=== PATIENT | male | born 1995 | race Caucasian/White ===

== ENCOUNTER 2018-12-25 19:16 | Emergency (ER) | payer SELFPAY ==
[~2018-12-25] VITALS: Ht 188 cm; Wt 143.5 kg
[2018-12-25] MEDS ORDERED: IV NORMAL SALINE 1,000ML 1,000 ML IV SCH ×2 (19:30→20:51)
[2018-12-25] MEDS ORDERED: FAMOTIDINE 20 MG/2 ML VIAL IVP ONE (19:30)
[2018-12-25] MEDS ORDERED: ONDANSETRON PF 4 MG/2 ML VIAL. IV ONE (19:30)
[2018-12-25 20:06] LABS: BASO # 0.2 x10^3/uL (0.0-0.2); BASO % 1 % (0-3); EOS % 0 % (0-3); HEMATOCRIT 47.7 % (39.0-53.0); HEMOGLOBIN 16.5 g/dL (13.0-17.5); LYMPH # 1.9 x10^3/uL (1.0-4.8); LYMPH % 14 % (24-48); MEAN CORPUSCULAR HEMOGLOBIN 29 pg (25-35); MEAN CORPUSCULAR HGB CONC 35 g/dL (31-37); MEAN CORPUSCULAR VOLUME 83 fL (79-100); MONO # 0.8 x10^3/uL (0.0-1.1); MONO % 6 % (0-9); NEUT # 10.7 x10^3uL (1.8-7.7); NEUT % 79 % (31-73); PLATELET COUNT 357 x10^3/uL (140-400); RED BLOOD COUNT 5.73 x10^6/uL (4.30-5.70); RED CELL DISTRIBUTION WIDTH 13.5 % (11.5-14.5); WHITE BLOOD COUNT 13.7 x10^3/uL (4.0-11.0)
[2018-12-25 20:17] LABS: ALBUMIN 4.6 g/dL (3.4-5.0); ALBUMIN/GLOBULIN RATIO 1.2 (1.0-1.7); CALCIUM 10.1 mg/dL (8.5-10.1); CREATININE 0.9 mg/dL (0.7-1.3); GFR 105.5; POTASSIUM 4.3 mmol/L (3.5-5.1); TOTAL BILIRUBIN 0.5 mg/dL (0.2-1.0); TOTAL PROTEIN 8.3 g/dL (6.4-8.2)
[2018-12-25] MEDS ORDERED: IOHEXOL 300 MG/ML 75 ML VIAL. IV ONE ×2 (21:00)
[2018-12-25] MEDS ORDERED: HALOPERIDOL LACT 5 MG/ML VIAL. IVP ONE (21:00)
[2018-12-25 21:10] LABS: BACTERIA,URINE 0 /HPF (0-FEW); BILIRUBIN,URINE NEG (NEG); CLARITY,URINE CLEAR; COLOR,URINE YELLOW; GLUCOSE,URINE NEG (NEG); NITRITE,URINE NEG (NEG); RBC,URINE OCC /HPF (0-2); SQUAMOUS EPITHELIAL CELL,UR OCC /LPF; UROBILINOGEN,URINE 0.2 mg/dL (0.2 mg/dL)
--- NOTE | 2018-12-25 21:53 | RAD ---
CT scan of the abdomen and pelvis with contrast 12/25/2018 CLINICAL HISTORY: Left lower quadrant abdominal pain. TECHNIQUE: After the intravenous administration of 100 cc of Omnipaque 350, contiguous, 5 mm axial sections were obtained through the abdomen and pelvis. One or more of the following individualized dose reduction techniques were utilized for this study: 1. Automated exposure control. 2. Adjustment of the mA and/or kV according to patient size. 3. Use of iterative reconstruction technique. FINDINGS: Images through the lung bases are within normal limits. The liver parenchyma has a decreased attenuation consistent with fatty infiltration. The spleen, pancreas, adrenal glands and kidneys are within normal limits. The abdominal aorta tapers normally. The gallbladder is well-distended. No free fluid or free air is seen within the abdomen. There is no evidence of bowel obstruction. The appendix is well-visualized and is within normal limits. Images through the pelvis demonstrate the urinary bladder distended with urine. No free fluid is seen. Minimal S-shaped curvature of the thoracolumbar spine is noted. IMPRESSION: No acute abnormality is seen. Electronically signed by: Mehrdad Prather MD (12/25/2018 9:50 PM) [facility]
--- NOTE | 2018-12-25 22:00 | PHYS DOC ---
Past History Past Medical History: Hypertension, Other Past Surgical History: Tonsillectomy Smoking: Non-smoker Alcohol Use: None Drug Use: None Adult General Chief Complaint Chief Complaint: NAUSEA/VOMITING/DIARRHEA HPI HPI Patient is a 23 year old male who presents with complaint of nausea, diarrhea, and abdominal pain. Patient states that he has been experiencing ongoing symptoms similar to today's episode over the past 3 months. Patient has been seen prior to today's visit at another emergency department approximately 2 months ago. He underwent CT imaging and blood work at that time no significant findings. States that despite his evaluation he has continued to have recurrent mid to left-sided abdominal pain. Denies any known triggers. States that he has had associated nausea and typically has frequent vomiting, especially in the morning. Notes that today he has had continued symptoms of abdominal pain and vomiting that started this morning but have not resolved. Denies any known medical problems. Does not currently follow with a primary doctor. States that the pain is cramping and dull. Review of Systems Review of Systems Constitutional: Denies fever or chills [] Eyes: Denies change in visual acuity, redness, or eye pain [] HENT: Denies nasal congestion or sore throat [] Respiratory: Denies cough or shortness of breath [] Cardiovascular: Denies chest pain or edema[] GI: Nausea, vomiting, diarrhea, abdominal pain[] : Denies dysuria or hematuria [] Musculoskeletal: Denies back pain or joint pain [] Integument: Denies rash or skin lesions [] Neurologic: Denies headache, focal weakness or sensory changes [] All other systems were reviewed and found to be within normal limits, except as documented in this note. Current Medications Current Medications Current Medications Medications (Trade) Dose Ordered Sig/Judith Start Time Stop Time Status Last Admin Dose Admin Famotidine (Pepcid Vial) 20 mg 1X ONCE 12/25/18 19:30 12/25/18 19:48 DC 12/25/18 19:59 20 MG Fentanyl Citrate (Fentanyl 2ml Vial) 50 mcg PRN Q15MIN PRN 12/25/18 21:00 12/26/18 20:59 12/25/18 21:15 50 MCG Haloperidol Lactate (Haldol) 5 mg 1X ONCE 12/25/18 21:00 12/25/18 21:01 DC 12/25/18 21:35 5 MG Iohexol (Omnipaque 300 Mg/ml) 25 ml 1X ONCE 12/25/18 21:00 12/25/18 21:10 DC 12/25/18 21:19 25 ML Ondansetron HCl (Zofran) 4 mg 1X ONCE 12/25/18 19:30 12/25/18 19:48 DC 12/25/18 19:59 4 MG Sodium Chloride 1,000 ml @ 1,000 mls/hr Q1H 12/25/18 20:51 12/25/18 21:50 DC 12/25/18 21:17 1,000 MLS/HR Allergies Allergies Allergies Coded Allergies Type Severity Reaction Last Updated Verified No Known Drug Allergies 01/16/15 No Physical Exam Physical Exam Constitutional: Alert, afebrile, appears in moderate discomfort. [] HENT: Normocephalic, atraumatic, bilateral external ears normal, oropharynx moist, no oral exudates, nose normal. [] Eyes: PERRLA, EOMI, conjunctiva normal, no discharge. [] Neck: Normal range of motion, no tenderness, supple, no stridor. [] Cardiovascular:Heart rate regular rhythm, no murmur [] Lungs & Thorax: Bilateral breath sounds clear to auscultation [] Abdomen: Bowel sounds normal, soft, periumbilical, epigastric, left upper and lower quadrant tenderness to palpation, no guarding or rebound tenderness, no masses, no pulsatile masses. [] Skin: Warm, dry, no erythema, no rash. [] Back: No tenderness, no CVA tenderness. [] Extremities: No tenderness, no cyanosis, no clubbing, ROM intact, no edema. [] Neurologic: Alert and oriented X 3, normal motor function, normal sensory function, no focal deficits noted. [] Current Patient Data Vital Signs Vital Signs Date Time Temp Pulse Resp B/P (MAP) Pulse Ox O2 Delivery O2 Flow Rate FiO2 12/25/18 19:16 97.9 60 30 145/81 (102) 100 Room Air Lab Results Laboratory Tests Test 12/25/18 19:40 12/25/18 19:46 12/25/18 20:44 White Blood Count 13.7 x10^3/uL (4.0-11.0) H Red Blood Count 5.73 x10^6/uL (4.30-5.70) H Hemoglobin 16.5 g/dL (13.0-17.5) Hematocrit 47.7 % (39.0-53.0) Mean Corpuscular Volume 83 fL (79-100) Mean Corpuscular Hemoglobin 29 pg (25-35) Mean Corpuscular Hemoglobin Concent 35 g/dL (31-37) Red Cell Distribution Width 13.5 % (11.5-14.5) Platelet Count 357 x10^3/uL (140-400) Neutrophils (%) (Auto) 79 % (31-73) H Lymphocytes (%) (Auto) 14 % (24-48) L Monocytes (%) (Auto) 6 % (0-9) Eosinophils (%) (Auto) 0 % (0-3) Basophils (%) (Auto) 1 % (0-3) Neutrophils # (Auto) 10.7 x10^3uL (1.8-7.7) H Lymphocytes # (Auto) 1.9 x10^3/uL (1.0-4.8) Monocytes # (Auto) 0.8 x10^3/uL (0.0-1.1) Eosinophils # (Auto) 0.0 x10^3/uL (0.0-0.7) Basophils # (Auto) 0.2 x10^3/uL (0.0-0.2) Sodium Level 138 mmol/L (136-145) Potassium Level 4.3 mmol/L (3.5-5.1) Chloride Level 102 mmol/L (98-107) Carbon Dioxide Level 20 mmol/L (21-32) L Anion Gap 16 (6-14) H Blood Urea Nitrogen 11 mg/dL (8-26) Creatinine 0.9 mg/dL (0.7-1.3) Estimated GFR (Cockcroft-Gault) 105.5 BUN/Creatinine Ratio 12 (6-20) Glucose Level 118 mg/dL (70-99) H Calcium Level 10.1 mg/dL (8.5-10.1) Total Bilirubin 0.5 mg/dL (0.2-1.0) Aspartate Amino Transferase (AST) 30 U/L (15-37) Alanine Aminotransferase (ALT) 51 U/L (16-63) Alkaline Phosphatase 64 U/L (46-116) Total Protein 8.3 g/dL (6.4-8.2) H Albumin 4.6 g/dL (3.4-5.0) Albumin/Globulin Ratio 1.2 (1.0-1.7) Lipase 88 U/L (73-393) Glucose (Fingerstick) 115 mg/dL (70-99) H Urine Collection Type Unknown Urine Color Yellow Urine Clarity Clear Urine pH 7.0 Urine Specific Hydro 1.020 Urine Protein 30 mg/dl (NEG-TRACE) Urine Glucose (UA) Neg mg/dL (NEG) Urine Ketones (Stick) >=160 mg/dL (NEG) Urine Blood Trace (NEG) Urine Nitrite Neg (NEG) Urine Bilirubin Neg (NEG) Urine Urobilinogen Dipstick 0.2 mg/dL (0.2 mg/dL) Urine Leukocyte Esterase Neg (NEG) Urine RBC Occ /HPF (0-2) Urine WBC 1-4 /HPF (0-4) Urine Squamous Epithelial Cells Occ /LPF Urine Bacteria 0 /HPF (0-FEW) Urine Mucus Slight /LPF EKG EKG Not performed[] Radiology/Procedures Radiology/[place] [address] IMAGING REPORT Signed PATIENT: RAY SEN ACCOUNT: [id number] : 1995 LOCATION: ER AGE: 23 SEX: M EXAM STATUS: REG ER ORD. PHYSICIAN: DESIRAE AQUINO MD REASON: llq abdominal pain PROCEDURE: CT ABD PELV W/ IV CONTRST ONLY CT scan of the abdomen and pelvis with contrast 12/25/2018 CLINICAL HISTORY: Left lower quadrant abdominal pain. TECHNIQUE: After the intravenous administration of 100 cc of Omnipaque 350, contiguous, 5 mm axial sections were obtained through the abdomen and pelvis. One or more of the following individualized dose reduction techniques were utilized for this study: 1. Automated exposure control. 2. Adjustment of the mA and/or kV according to patient size. 3. Use of iterative reconstruction technique. FINDINGS: Images through the lung bases are within normal limits. The liver parenchyma has a decreased attenuation consistent with fatty infiltration. The spleen, pancreas, adrenal glands and kidneys are within normal limits. The abdominal aorta tapers normally. The gallbladder is well-distended. No free fluid or free air is seen within the abdomen. There is no evidence of bowel obstruction. The appendix is well-visualized and is within normal limits. Images through the pelvis demonstrate the urinary bladder distended with urine. No free fluid is seen. Minimal S-shaped curvature of the thoracolumbar spine is noted. IMPRESSION: No acute abnormality is seen. Electronically signed by: Mehrdad Prather MD (12/25/2018 9:50 PM) [facility] DICTATED AND SIGNED BY: MEHRDAD PRATHER MD DATE: 12/25/182149 CC: DESIRAE AQUINO MD; PCP,ORIANA ~ [] Course & Med Decision Making Course & Med Decision Making Pertinent Labs and Imaging studies reviewed. (See chart for details) Patient was treated with IV Haldol, fentanyl, and Zofran. Symptoms currently controlled at this time and patient states that he feels better. CT imaging and blood work revealed no specific cause for patient's symptoms. I have moderate suspicion the patient's symptoms could be a potential cyclic vomiting syndrome though I did speak with the family and the patient regarding need for further testing to rule out other potential causes for symptoms. Prescribed Phenergan and Pepcid for continued outpatient treatment. Advised follow-up with primary care in the next 5-7 days for reevaluation and did stress patient likely needs referral to gastroenterology for further outpatient workup. Advised return to emergency department for any worsening symptoms per the patient was understanding and in agreement with treatment plan.[] Dragon Disclaimer Dragon Disclaimer This electronic medical record was generated, in whole or in part, using a voice recognition dictation system. Departure Departure: Impression: Primary Impression: Abdominal pain Additional Impression: Nausea and vomiting Disposition: 01 HOME, SELF-CARE Condition: IMPROVED Referrals: PCP,NO (PCP) NIXON ANGELA MD Patient Instructions: Abdominal Pain (Nonspecific), Nausea and Vomiting Additional Instructions: Follow-up with your primary doctor in the next 5-7 days for reevaluation. He will likely need gastroenterology referral for further testing regarding the cause of your symptoms. Return to the emergency department for any worsening symptoms. Scripts Famotidine (PEPCID) 20 Mg Tablet 1 TAB PO BID, #30 TAB 0 Refills Prov: DESIRAE AQUINO MD 12/25/18 Promethazine Hcl (PROMETHAZINE HCL) 25 Mg Tablet 1 TAB PO PRN Q6HRS PRN for NAUSEA/VOMITING, #20 TAB Prov: DESIRAE AQUINO MD 12/25/18 Problem Qualifiers Primary Impression: Abdominal pain Abdominal location: unspecified location Qualified Codes: R10.9 - Unspecified abdominal pain Additional Impression: Nausea and vomiting Vomiting type: unspecified Vomiting Intractability: non-intractable Qualified Codes: R11.2 - Nausea with vomiting, unspecified DESIRAE AQUINO MD December 25, 2018 22:00
[2018-12-25] MEDS ORDERED: FAMO-63 PO (22:26)
[2018-12-25] MEDS ORDERED: PROM25TA10 PO (22:26)
[2018-12-25 23:09] VITALS: BP 112/47
== END 2018-12-25 23:12 | disposition home or self-care (01) ==
LOC: ER 19:16
DX: R11.2 Nausea with vomiting, unspecified (principal); R10.32 Left lower quadrant pain; R19.7 Diarrhea, unspecified; I10 Essential (primary) hypertension
CPT/HCPCS: 36415; 74177; 80053; 81001; 82947; 83690; 85025; 96361; 96374; 96375; 99285; J1630; J2405; J3010; J3490; Q9967; J7030

== ENCOUNTER 2019-09-21 12:44 | Emergency (ER) | payer SELFPAY ==
[~2019-09-21] VITALS: Ht 188 cm; Wt 130.0 kg
[~2019-09-21 12:44] MED LIST: FAMO-63 PO; PROM25TA10 PO
[2019-09-21] MEDS ORDERED: METOCLOPRAMIDE HCL 10 MG/2 ML VIAL. IVP ONE (13:30)
[2019-09-21] MEDS ORDERED: IV NORMAL SALINE 1,000ML 1,000 ML IV SCH (13:30)
[2019-09-21] MEDS ORDERED: diphenhydrAMINE 50 MG/ML VIAL IVP ONE (13:30)
[2019-09-21] MEDS ORDERED: KETOROLAC 30 MG/ML VIAL. IVP ONE (13:30)
--- NOTE | 2019-09-21 13:34 | PHYS DOC ---
Past History Past Medical History: Diabetes, GERD, Hypertension, Other Past Surgical History: Tonsillectomy Smoking: Non-smoker Alcohol Use: None Drug Use: Marijuana Adult General Chief Complaint Chief Complaint: NAUSEA/VOMITING/DIARRHEA [facility] [facility] HPI Patient is a 23-year-old male who presents with complaint of upper abdominal pain with nausea and vomiting that started this morning. Patient indicates that he has a history of very frequent similar episodes and states that initially he was told that it was from smoking marijuana. Patient states that he stop smoking marijuana about 6 months ago. He states the symptoms have not improved. Patient rates his pain to be an 8 out of 10. He denies any radiation of the pain. He does indicate that he has not been able to keep anything down since onset of symptoms. He denies any diarrhea.[] Review of Systems Review of Systems Constitutional: Denies fever or chills [] Respiratory: Denies cough or shortness of breath [] Cardiovascular: No additional information not addressed in HPI [] GI: Complains of abdominal pain with nausea and vomiting. Denies diarrhea [] Integument: Denies rash or skin lesions [] Neurologic: Denies headache, focal weakness or sensory changes [] All other systems were reviewed and found to be within normal limits, except as documented in this note. Allergies Allergies Allergies Coded Allergies Type Severity Reaction Last Updated Verified No Known Drug Allergies 01/16/15 No Physical Exam Physical Exam Constitutional: Well developed, well nourished, no acute distress, non-toxic appearance. [] HENT: Normocephalic, atraumatic, bilateral external ears normal, oropharynx moist, no oral exudates, nose normal. [] Eyes: PERRLA, EOMI, conjunctiva normal, no discharge. [] Neck: Normal range of motion, no tenderness, supple, no stridor. [] Cardiovascular: Regular rate and rhythm[] Lungs & Thorax: Bilateral breath sounds clear to auscultation [] Abdomen: Bowel sounds normal, soft, with epigastric and left upper quadrant tenderness. [] Skin: Warm, dry, no erythema, no rash. [] Extremities: No tenderness, no cyanosis, no clubbing, ROM intact, no edema. [] Neurologic: Alert and oriented X 3, no focal deficits noted. [] EKG EKG [] Radiology/Procedures Radiology/Procedures [] Impressions: PROCEDURE: CT ABD PELV W/ IV CONTRST ONLY Examination: CT of the abdomen pelvis with IV contrast HISTORY: History of abdominal pain COMPARISON: 12/25/2018 TECHNIQUE: Axial CT images of the abdomen pelvis were performed with IV contrast. Coronal and sagittal reformats are performed. Exposure: One or more of the following individualized dose reduction techniques were utilized for this examination: 1. Automated exposure control 2. Adjustment of the mA and/or kV according to patient size 3. Use of iterative reconstruction technique FINDINGS: Minimal atelectasis left lung base. No evidence of free air identified in the abdomen. Focal opacity identified in the left lobe of the liver likely focal fat. The visualized spleen, adrenals grossly appears unremarkable. The gallbladder is mildly distended. The stomach is mildly distended with visualized pancreas grossly appears unremarkable. Small bowel is nondilated. Mild fat stranding identified about the sigmoid colon. Urinary bladder is mildly distended. The bilateral kidneys enhance symmetrically. No evidence of lytic bony destructive changes. IMPRESSION: Mild fat stranding identified about the sigmoid colon could be nondistention or mild colitis. Electronically signed by: Vladimir Scherer MD (09/21/2019 3:53 PM) [id number] Course & Med Decision Making Course & Med Decision Making Pertinent Labs and Imaging studies reviewed. (See chart for details) [] Dragon Disclaimer Dragon Disclaimer This electronic medical record was generated, in whole or in part, using a voice recognition dictation system. Departure Departure: Impression: Primary Impression: Colitis Additional Impression: Nausea and vomiting Disposition: 01 HOME, SELF-CARE Condition: STABLE Referrals: PCP,NO (PCP) Patient Instructions: Colitis, Nausea and Vomiting Scripts Metronidazole (FLAGYL) 500 Mg Tablet 1 TAB PO TID for infection, #30 TAB Prov: TEE BETH Jr. DO 09/21/19 Hydrocodone Bit/Acetaminophen (NORCO 5-325 TABLET) 1 Each Tablet 1 TAB PO PRN Q6HRS PRN for PAIN, #12 TAB 0 Refills Prov: TEE BETH Jr. DO 09/21/19 Metoclopramide Hcl (REGLAN) 10 Mg Tablet 1 TAB PO QID PRN for NAUSEA/VOMITING for 3 Days, #12 TAB 0 Refills before food and bedtime Prov: TEE BETH Jr. DO 09/21/19 Problem Qualifiers Additional Impression: Nausea and vomiting Vomiting type: unspecified Vomiting Intractability: non-intractable Qualified Codes: R11.2 - Nausea with vomiting, unspecified TEE BETH Jr. DO Sep 21, 2019 13:34
[2019-09-21 13:39] VITALS: BP 140/102
[2019-09-21 13:40] LABS: BASO # 0.1 x10^3/uL (0.0-0.2); BASO % 1 % (0-3); EOS # 0.1 x10^3/uL (0.0-0.7); EOS % 1 % (0-3); HEMATOCRIT 47.4 % (39.0-53.0); HEMOGLOBIN 15.9 g/dL (13.0-17.5); LYMPH # 3.2 x10^3/uL (1.0-4.8); LYMPH % 20 % (24-48); MEAN CORPUSCULAR HEMOGLOBIN 29 pg (25-35); MEAN CORPUSCULAR HGB CONC 34 g/dL (31-37); MEAN CORPUSCULAR VOLUME 86 fL (79-100); MONO # 0.9 x10^3/uL (0.0-1.1); MONO % 6 % (0-9); NEUT # 11.8 x10^3uL (1.8-7.7); NEUT % 73 % (31-73); PLATELET COUNT 401 x10^3/uL (140-400); RED BLOOD COUNT 5.52 x10^6/uL (4.30-5.70); RED CELL DISTRIBUTION WIDTH 13.5 % (11.5-14.5); WHITE BLOOD COUNT 16.1 x10^3/uL (4.0-11.0)
[2019-09-21 13:50] LABS: CALCIUM 9.5 mg/dL (8.5-10.1); CREATININE 0.9 mg/dL (0.7-1.3); GFR 105.5; POTASSIUM 3.8 mmol/L (3.5-5.1)
[2019-09-21 13:55] LABS: ALBUMIN 4.5 g/dL (3.4-5.0); ALBUMIN/GLOBULIN RATIO 1.3 (1.0-1.7); TOTAL BILIRUBIN 0.5 mg/dL (0.2-1.0); TOTAL PROTEIN 8.1 g/dL (6.4-8.2)
[2019-09-21 14:01] LABS: % BANDS 1 % (0-9); % EOS 1 % (0-5); % LYMPHS 12 % (24-48); % MONOS 1 % (0-10); % SEGS 85 % (35-66)
[2019-09-21 14:02] LABS: PLT ESTIMATE INCREASED (ADEQUATE)
[2019-09-21 14:03] LABS: HYPERSEGS PRESENT
[2019-09-21 14:09] LABS: TOXIC GRANULATION SLIGHT
[2019-09-21] MEDS ORDERED: BUTORPHANOL 2 MG VIAL. IV ONE (14:45)
[2019-09-21] MEDS ORDERED: IV NORMAL SALINE 1,000ML 1,000 ML IV ONE (15:15)
[2019-09-21] MEDS ORDERED: IOHEXOL 300 MG/ML 75 ML VIAL. IV ONE (15:30)
--- NOTE | 2019-09-21 15:56 | RAD ---
Examination: CT of the abdomen pelvis with IV contrast HISTORY: History of abdominal pain COMPARISON: 12/25/2018 TECHNIQUE: Axial CT images of the abdomen pelvis were performed with IV contrast. Coronal and sagittal reformats are performed. Exposure: One or more of the following individualized dose reduction techniques were utilized for this examination: 1. Automated exposure control 2. Adjustment of the mA and/or kV according to patient size 3. Use of iterative reconstruction technique FINDINGS: Minimal atelectasis left lung base. No evidence of free air identified in the abdomen. Focal opacity identified in the left lobe of the liver likely focal fat. The visualized spleen, adrenals grossly appears unremarkable. The gallbladder is mildly distended. The stomach is mildly distended with visualized pancreas grossly appears unremarkable. Small bowel is nondilated. Mild fat stranding identified about the sigmoid colon. Urinary bladder is mildly distended. The bilateral kidneys enhance symmetrically. No evidence of lytic bony destructive changes. IMPRESSION: Mild fat stranding identified about the sigmoid colon could be nondistention or mild colitis. Electronically signed by: Vladimir Scherer MD (09/21/2019 3:53 PM) [id number]
[2019-09-21] MEDS ORDERED: METO10TA81 PO (16:38)
[2019-09-21] MEDS ORDERED: HYDR-3165 PO (16:38)
[2019-09-21] MEDS ORDERED: METR500T PO (16:38)
== END 2019-09-21 16:53 | disposition home or self-care (01) ==
LOC: ER 12:44
DX: K52.9 Noninfective gastroenteritis and colitis, unspecified (principal); E11.9 Type 2 diabetes mellitus without complications; K21.9 Gastro-esophageal reflux disease without esophagitis; I10 Essential (primary) hypertension; F12.10 Cannabis abuse, uncomplicated
CPT/HCPCS: 36415; 74177; 80053; 83690; 85007; 85025; 96361; 96374; 96375; 99285; J0595; J1200; J1885; J2765; J7030

== ENCOUNTER 2019-12-18 20:03 | Emergency (ER) | payer SELFPAY ==
[~2019-12-18] VITALS: Ht 188 cm; Wt 123.9 kg
[~2019-12-18 20:03] MED LIST changes: +HYDR-3165 PO; +METO10TA81 PO; +METR500T PO
--- NOTE | 2019-12-18 20:07 | PHYS DOC ---
Past History Past Medical History: No Pertinent History, GERD, IBS Past Medical History GASTRITIS Past Surgical History: No Surgical History Smoking: Non-smoker Alcohol Use: None Drug Use: Marijuana General Adult EDM: Chief Complaint: NAUSEA/VOMITING/DIARRHEA HPI: HPI: "..I got chronic abdomen pain... christina cyclic vomiting... I ve been vomiting since yesterday night... I was to follow up with GI and primary...but I don't have insurance...so I just come here..." Patient is a 24 year old male who presents with complaints of nausea, diarrhea and vomiting. Patient has history of intermittent abdomen pain and presents emergency department approximately 2 -3 months with the episode of nausea, diarrhea and vomiting and associated abdomen pain. Patient denies any intake of bad food. No history of dark or tarry stools. Patient denies any recent travel outside [facility]. Patient denies any trauma to his abdomen. Patient has been told he probably has gastritis, IBS and cyclic vomiting. Patient has not follow-up primary care. Patient has not followed with GI. Patient denies any history immunosuppression. Today pain is localized primarily in epigastric and left upper quadrant of abdomen. Review of Systems: Review of Systems: Constitutional: Denies fever or chills Eyes: Denies change in visual acuity HENT: Denies nasal congestion or sore throat Respiratory: Denies cough or shortness of breath Cardiovascular: Denies chest pain or edema GI: Complains of abdominal pain, nausea, vomiting, and diarrhea : Denies dysuria Musculoskeletal: Denies back pain or joint pain Integument: Denies rash Neurologic: Denies headache, focal weakness or sensory changes Endocrine: Denies polyuria or polydipsia Lymphatic: Denies swollen glands Psychiatric: Denies depression or anxiety Heart Score: Risk Factors: Risk Factors: DM, Current or recent (<one month) smoker, HTN, HLP, family history of CAD, obesity. Risk Scores: Score 0 - 3: 2.5% MACE over next 6 weeks - Discharge Home Score 4 - 6: 20.3% MACE over next 6 weeks - Admit for Clinical Observation Score 7 - 10: 72.7% MACE over next 6 weeks - Early Invasive Strategies Family History: Family History: Noncontributory Current Medications: Current Meds: See nursing for home medications Allergies: Allergies: Allergies Coded Allergies Type Severity Reaction Last Updated Verified No Known Drug Allergies 09/21/19 No Physical Exam: PE: Constitutional: Moderate acute distress, non-toxic appearance. [] HENT: Normocephalic, atraumatic, bilateral external ears normal, oropharynx dry, no oral exudates, nose normal. [] Eyes: PERRLA, EOMI, conjunctiva normal, no discharge. [] Neck: Normal range of motion, no tenderness, supple, no stridor. [] Cardiovascular:Heart rate regular rhythm, no murmur [] Lungs & Thorax: Bilateral breath sounds equal at apex auscultation [] Abdomen: Bowel sounds hyperactive, soft, epigastric and left upper quadrant tenderness, no masses, no pulsatile masses. Rebound to left upper quadrant. Declines rectal at this time. Skin: Warm, dry, no erythema, no rash. [] Back: No tenderness, no CVA tenderness. [] Extremities: No tenderness, no cyanosis, no clubbing, ROM intact, no edema. No psoas sign. Neurologic: Alert and oriented X 3, normal motor function, normal sensory function, no focal deficits noted. [] Psychologic: Affect anxious, judgement normal, mood normal. [] EKG: EKG: [] Radiology/Procedures: Radiology/Procedures: [][address] [address] IMAGING REPORT Signed PATIENT: RAY SEN ACCOUNT: [id number] : 1995 LOCATION: ER AGE: 24 SEX: M EXAM STATUS: REG ER ORD. PHYSICIAN: MYRA BRADSHAW MD REASON: pain PROCEDURE: CHEST PA & LATERAL Exam: Chest 2 views INDICATION: Pain TECHNIQUE: Frontal and lateral views the chest Comparisons: None FINDINGS: The cardiomediastinal silhouette and pulmonary vessels are within normal limits. The lung and pleural spaces are clear. IMPRESSION: No acute cardiopulmonary process. Electronically signed by: Reynaldo Reyna MD (12/18/2019 8:41 PM) [id number] DICTATED AND SIGNED BY: REYNALDO REYNA MD DATE: 12/18/192040 CC: MYRA BRADSHAW MD; PCP,NO ~ [address] [place] [address] IMAGING REPORT Signed PATIENT: RAY SEN ACCOUNT: [id number] : 1995 LOCATION: ER AGE: 24 SEX: M EXAM STATUS: REG ER ORD. PHYSICIAN: MYRA BRADSHAW MD REASON: pain PROCEDURE: ABDOMEN SUPINE & UPRIGHT Exam: Acute abdominal series INDICATION: Pain TECHNIQUE: Frontal view of the chest with upright and supine views of the abdomen Comparisons: None FINDINGS: The cardiomediastinal silhouette and pulmonary vessels are within normal limits. The lung and pleural spaces are clear. Air and stool are noted throughout the colon to level the rectum in a nonobstructive bowel gas pattern. No suspicious masses or calcifications. IMPRESSION: 1. No acute cardiopulmonary process. 2. Nonobstructive bowel gas pattern. Electronically signed by: Reynaldo Reyna MD (12/18/2019 8:42 PM) [id number] DICTATED AND SIGNED BY: REYNALDO REYNA MD DATE: 12/18/192041 CC: MYRA BRADSHAW MD; PCP,NO ~ Course & Med Decision Making: Course & Med Decision Making Pertinent Labs and Imaging studies reviewed. (See chart for details) Patient stay on a clear fluid diet only for the next 2 days. No solids or milk products. Must have bowel rest. Patient take Pepcid 20 mg a day, Zofran 8 mg 4 times a day as needed for nausea and vomiting. Must follow-up with primary care. Return if any concerns. Tylenol and ibuprofen for pain. Impression: 1. Abdomen pain 2. Nausea vomiting diarrhea 3. Dehydration 4. Hypokalemia 3,2 5. Hyponatremia 139 [] Dragon Disclaimer: Dragon Disclaimer: This electronic medical record was generated, in whole or in part, using a voice recognition dictation system. Departure Departure: Disposition: 01 HOME/RESIDENCE PRIOR TO ADM Condition: STABLE Referrals: PCPORIANA (PCP) Scripts Ondansetron Hcl (ZOFRAN) 8 Mg Tablet 8 MG PO QIDPRN PRN for active nausea and vomiting, #30 BOTTLE Prov: MYRA BRADSHAW MD 12/18/19 Famotidine (PEPCID) 20 Mg Tablet 1 TAB PO BID for gastritis, #60 TAB 3 Refills Prov: MYRA BRADSHAW MD 12/18/19 Fátima Disclaimer This chart was dictated in whole or in part using Voice Recognition software in a busy, high-work load, and often noisy Emergency Department environment. It may contain unintended and wholly unrecognized errors or omissions. MYRA BRADSHAW MD December 18, 2019 20:07
[2019-12-18] MEDS ORDERED: IV RINGERS SOLUTION,LACTATED 1,000 ML IV SCH (20:34)
--- NOTE | 2019-12-18 20:44 | RAD ---
Exam: Chest 2 views INDICATION: Pain TECHNIQUE: Frontal and lateral views the chest Comparisons: None FINDINGS: The cardiomediastinal silhouette and pulmonary vessels are within normal limits. The lung and pleural spaces are clear. IMPRESSION: No acute cardiopulmonary process. Electronically signed by: Reynaldo Morejon MD (12/18/2019 8:41 PM) [id number]
[2019-12-18] MEDS ORDERED: KETOROLAC 30 MG/ML VIAL. IVP ONE (20:45)
[2019-12-18] MEDS ORDERED: ONDANSETRON PF 4 MG/2 ML VIAL. IVP ONE ×2 (20:45→22:15)
[2019-12-18] MEDS ORDERED: FAMOTIDINE 20 MG/2 ML VIAL IVP ONE (20:45)
--- NOTE | 2019-12-18 20:45 | RAD ---
Exam: Acute abdominal series INDICATION: Pain TECHNIQUE: Frontal view of the chest with upright and supine views of the abdomen Comparisons: None FINDINGS: The cardiomediastinal silhouette and pulmonary vessels are within normal limits. The lung and pleural spaces are clear. Air and stool are noted throughout the colon to level the rectum in a nonobstructive bowel gas pattern. No suspicious masses or calcifications. IMPRESSION: 1. No acute cardiopulmonary process. 2. Nonobstructive bowel gas pattern. Electronically signed by: Reynaldo Morejon MD (12/18/2019 8:42 PM) [id number]
[2019-12-18 21:00] LABS: BASO % 0 % (0-3); EOS % 0 % (0-3); HEMATOCRIT 44.4 % (39.0-53.0); HEMOGLOBIN 15.3 g/dL (13.0-17.5); LYMPH # 1.3 x10^3/uL (1.0-4.8); LYMPH % 12 % (24-48); MEAN CORPUSCULAR HEMOGLOBIN 29 pg (25-35); MEAN CORPUSCULAR HGB CONC 35 g/dL (31-37); MEAN CORPUSCULAR VOLUME 85 fL (79-100); MONO # 0.4 x10^3/uL (0.0-1.1); MONO % 4 % (0-9); NEUT # 8.8 x10^3uL (1.8-7.7); NEUT % 83 % (31-73); PLATELET COUNT 284 x10^3/uL (140-400); RED BLOOD COUNT 5.25 x10^6/uL (4.30-5.70); RED CELL DISTRIBUTION WIDTH 13.3 % (11.5-14.5); WHITE BLOOD COUNT 10.7 x10^3/uL (4.0-11.0)
[2019-12-18 21:10] LABS: CALCIUM 8.9 mg/dL (8.5-10.1); CREATININE 0.9 mg/dL (0.7-1.3); GFR 104.6; POTASSIUM 3.2 mmol/L (3.5-5.1)
[2019-12-18 21:16] LABS: ALBUMIN 4.3 g/dL (3.4-5.0); DIRECT BILIRUBIN 0.1 mg/dL (0.0-0.2); TOTAL BILIRUBIN 0.7 mg/dL (0.2-1.0); TOTAL PROTEIN 7.5 g/dL (6.4-8.2)
[2019-12-18] MEDS ORDERED: POTASSIUM CHLORIDE 20 MEQ TABLET.ER. PO ONE (22:00)
[2019-12-18] MEDS ORDERED: IV RINGERS SOLUTION,LACTATED 1,000 ML IV ONE (22:00)
[2019-12-18] MEDS ORDERED: MORPHINE SULFATE 10 MG/ML SYRINGE. SQ ONE (22:00)
[2019-12-18] MEDS ORDERED: SUCRALFATE 1 GM TABLET. PO ONE (22:00)
[2019-12-18] MEDS ORDERED: MAGNESIUM HYDROXIDE 2,400 MG/30 ML ORAL.SUSP. PO ONE (22:00)
[2019-12-18] MEDS ORDERED: FAMO-63 PO (22:06)
[2019-12-18] MEDS ORDERED: ONDA8TAB9 PO (22:06)
[2019-12-19 00:27] LABS: BARBITURATES NEG (NEG); BENZODIAZEPINES NEG (NEG); CANNABINOIDS POS (NEG); COCAINE NEG (NEG); METHADONE NEG (NEG); OPIATES POS (NEG); PHENCYCLIDINE NEG (NEG)
[2019-12-19 00:30] LABS: BILIRUBIN,URINE NEG (NEG); CLARITY,URINE CLEAR; COLOR,URINE YELLOW; GLUCOSE,URINE NEG (NEG)
[2019-12-19 00:31] LABS: BACTERIA,URINE 0 /HPF (0-FEW); NITRITE,URINE NEG (NEG); RBC,URINE 0 /HPF (0-2); SQUAMOUS EPITHELIAL CELL,UR OCC /LPF; UROBILINOGEN,URINE 0.2 mg/dL (0.2 mg/dL); WBC,URINE RARE /HPF (0-4)
[2019-12-19 00:32] LABS: AMPHETAMINE/METHAMPHETAMINE NEG (NEG)
[2019-12-19 00:35] VITALS: BP 132/94
== END 2019-12-19 00:35 | disposition home or self-care (01) ==
LOC: ER 20:03
DX: E86.0 Dehydration (principal); R19.7 Diarrhea, unspecified; R10.12 Left upper quadrant pain; E87.6 Hypokalemia; E87.1 Hypo-osmolality and hyponatremia; K21.9 Gastro-esophageal reflux disease without esophagitis; K52.89 Other specified noninfective gastroenteritis and colitis
CPT/HCPCS: 36415; 71046; 74019; 80048; 80076; 80307; 81001; 82550; 83690; 84484; 85025; 85610; 85730; 96361; 96372; 96374; 96375; 96376; 99285; J1885; J2270; J2405; J3490; J7120

== ENCOUNTER 2020-07-14 01:10 | Emergency (ER) | payer SELFPAY ==
[~2020-07-14] VITALS: Ht 188 cm; Wt 123.9 kg
[~2020-07-14 01:10] MED LIST changes: +ONDA8TAB9 PO
[2020-07-14 01:15] VITALS: BP 129/65
--- NOTE | 2020-07-14 01:19 | PHYS DOC ---
Past History Past Medical History: No Pertinent History, GERD, IBS Additional Past Medical Histor: colitis; poss cyclic vomiting syndrome Past Surgical History: Tonsillectomy Smoking: Non-smoker Alcohol Use: None Drug Use: Marijuana General Adult EDM: Chief Complaint: NAUSEA/VOMITING/DIARRHEA HPI: HPI: ".. I am having one of my cyclic vomiting things. it been going on 5 hrs now..." Patient is a 24 year old male who presents with above hx and complaints of cyclic vomiting. Patient denies any bad food intake. No recent travel. No specific ill contacts. No trauma. No history immunosuppression. Does have a history of gastritis, GERD, irritable bowel syndrome and episodes of cyclic vomiting. Patient denies any use of marijuana. Patient has been seen previously for cyclic vomiting, Does not follow with a primary care. Did not get flu vaccination this season. Review of Systems: Review of Systems: Constitutional: Denies fever or chills Eyes: Denies change in visual acuity HENT: Denies nasal congestion or sore throat Respiratory: Denies cough or shortness of breath Cardiovascular: Denies chest pain or edema GI: Complains of epigastric abdominal pain, nausea, vomiting,. No history of bloody stools or diarrhea : Denies dysuria Musculoskeletal: Denies back pain or joint pain Integument: Denies rash Neurologic: Denies headache, focal weakness or sensory changes Endocrine: Denies polyuria or polydipsia Lymphatic: Denies swollen glands Psychiatric: Denies depression or anxiety Family History: Family History: Noncontributory Current Medications: Current Meds: See nursing for home meds Allergies: Allergies: Allergies Coded Allergies Type Severity Reaction Last Updated Verified No Known Drug Allergies 09/21/19 No Physical Exam: PE: Constitutional: in moderate acute distress, non-toxic appearance. [] HENT: Normocephalic, atraumatic, bilateral external ears normal, oropharynx dry, no oral exudates, nose normal. [] Eyes: PERRLA, EOMI, conjunctiva normal, no discharge. [] Neck: Normal range of motion, no tenderness, supple, no stridor. [] Cardiovascular:Heart rate regular rhythm, no murmur [] Lungs & Thorax: Bilateral breath sounds equal at apex with scattered wheezes on auscultation [] Abdomen: Bowel sounds normal, soft, epigastric tenderness, no masses, no pulsatile masses. Rebound to epigastric. Patient did vomit up a very large meal of rice while in the emergency department Skin: Warm, dry, no erythema, no rash. [] Back: No tenderness, no CVA tenderness. [] Extremities: No tenderness, no cyanosis, no clubbing, ROM intact, no edema. No cording. Neurologic: Alert and oriented X 3, normal motor function, normal sensory function, no focal deficits noted. [] Psychologic: Affect anxious, judgement normal, mood normal. [] EKG: EKG: [] Radiology/Procedures: Radiology/Procedures: [][address] [address] IMAGING REPORT Signed PATIENT: RAY SEN ACCOUNT: [id number] : 1995 LOCATION: ER AGE: 24 SEX: M EXAM STATUS: REG ER ORD. PHYSICIAN: MYRA BRADSHAW MD REASON: Nausea, vomiting, left sided abdomen pain PROCEDURE: ACUTE ABDOMEN SERIES INDICATION: Reason: Nausea, vomiting, left sided abdomen pain / Spl. Instructions: / History: COMPARISON: December 18, 2019 IMPRESSION: 3 views of the chest and abdomen obtained. Cardiac silhouette is unremarkable. No focal airspace consolidation or pulmonary edema. Air scattered throughout the large and small bowel in a nonspecific but not grossly obstructive pattern. Electronically signed by: Rickey Olivera MD (07/14/2020 2:08 AM) DESKTOP- [id number] DICTATED AND SIGNED BY: RICKEY OLIVERA MD DATE: 07/14/20 020 CC: MYRA BRADSHAW MD; PCP,NO ~MTH0 0 Heart Score: HEART Score for Chest Pain: HEART Score for Chest Pain Response (Comments) Value History Slighlty/Non-Suspicious 0 ECG Normal 0 Age < 45 0 Risk Factors 1 or 2 Risk Factors 1 Troponin < Normal Limit 0 Total 1 Risk Factors: Risk Factors: DM, Current or recent (<one month) smoker, HTN, HLP, family history of CAD, obesity. Risk Scores: Score 0 - 3: 2.5% MACE over next 6 weeks - Discharge Home Score 4 - 6: 20.3% MACE over next 6 weeks - Admit for Clinical Observation Score 7 - 10: 72.7% MACE over next 6 weeks - Early Invasive Strategies Course & Med Decision Making: Course & Med Decision Making Pertinent Labs and Imaging studies reviewed. (See chart for details) Patient received IV fluids, antiemetics. Discharged home with a prescription for Zofran. Patient advised to avoid marijuana since it can induce cyclic vomiting syndrome. Pepcid 20 mg twice a day. Patient follow-up primary care. Patient return if any concerns. Impression: 1. Cyclic vomiting 2. Gastritis 3. Suspect he has chronic marijuana use which is contributing to his cyclic vomiting. (Denied Use- but drug screen.+) 4. Mild dehydration [] Dragon Disclaimer: Dragon Disclaimer: This electronic medical record was generated, in whole or in part, using a voice recognition dictation system. Departure Departure: Referrals: [facility] (PCP) Scripts Famotidine (PEPCID) 20 Mg Tablet 20 MG PO BID for gastritis for 30 Days, #60 TAB Prov: MYRA BRADSHAW MD 07/14/20 Ondansetron Hcl (ZOFRAN) 4 Mg Tablet 8 MG PO QIDPRN PRN for NAUSEA/VOMITING, #30 TAB Prov: MYRA BRADSHAW MD 07/14/20 Dragon Disclaimer This chart was dictated in whole or in part using Voice Recognition software in a busy, high-work load, and often noisy Emergency Department environment. It may contain unintended and wholly unrecognized errors or omissions. MYRA BRADSHAW MD Jul 14, 2020 01:19
[2020-07-14] MEDS ORDERED: ONDANSETRON PF 4 MG/2 ML VIAL. ONE (01:30)
[2020-07-14] MEDS ORDERED: IV RINGERS SOLUTION,LACTATED 1,000 ML IV SCH (01:30)
[2020-07-14] MEDS ORDERED: MORPHINE SULFATE 10 MG/ML SYRINGE. ONE (01:31)
[2020-07-14 01:43] LABS: BASO # 0.1 x10^3/uL (0.0-0.2); BASO % 0 % (0-3); EOS % 0 % (0-3); HEMATOCRIT 49.6 % (39.0-53.0); HEMOGLOBIN 16.7 g/dL (13.0-17.5); LYMPH # 1.2 x10^3/uL (1.0-4.8); LYMPH % 8 % (24-48); MEAN CORPUSCULAR HEMOGLOBIN 29 pg (25-35); MEAN CORPUSCULAR HGB CONC 34 g/dL (31-37); MEAN CORPUSCULAR VOLUME 85 fL (79-100); MONO # 0.5 x10^3/uL (0.0-1.1); MONO % 3 % (0-9); NEUT # 13.3 x10^3uL (1.8-7.7); NEUT % 88 % (31-73); PLATELET COUNT 366 x10^3/uL (140-400); RED BLOOD COUNT 5.84 x10^6/uL (4.30-5.70); RED CELL DISTRIBUTION WIDTH 13.3 % (11.5-14.5); WHITE BLOOD COUNT 15.1 x10^3/uL (4.0-11.0)
[2020-07-14 01:47] LABS: CALCIUM 10.1 mg/dL (8.5-10.1); CREATININE 1.1 mg/dL (0.7-1.3); POTASSIUM 3.9 mmol/L (3.5-5.1)
[2020-07-14 01:57] LABS: ALBUMIN 4.8 g/dL (3.4-5.0); DIRECT BILIRUBIN 0.2 mg/dL (0.0-0.2); TOTAL BILIRUBIN 0.8 mg/dL (0.2-1.0); TOTAL PROTEIN 8.2 g/dL (6.4-8.2)
[2020-07-14] MEDS ORDERED: ONDANSETRON PF 4 MG/2 ML VIAL. IVP ONE (02:00)
[2020-07-14] MEDS ORDERED: FAMOTIDINE 20 MG/2 ML VIAL IVP ONE (02:00)
[2020-07-14] MEDS ORDERED: MORPHINE SULFATE 10 MG/ML SYRINGE. SQ ONE (02:00)
--- NOTE | 2020-07-14 02:10 | RAD ---
INDICATION: Reason: Nausea, vomiting, left sided abdomen pain / Spl. Instructions: / History: COMPARISON: December 18, 2019 IMPRESSION: 3 views of the chest and abdomen obtained. Cardiac silhouette is unremarkable. No focal airspace cons olidation or pulmonary edema. Air scattered throughout the large and small bowel in a nonspecific but not grossly obstructive pattern. Electronically signed by: Sina King MD (07/14/2020 2:08 AM) DESKTOP-[id number]
[2020-07-14 04:21] LABS: % LYMPHS 10 % (24-48); % MONOS 3 % (0-10); % SEGS 87 % (35-66); PLT ESTIMATE ADEQUATE (ADEQUATE)
[2020-07-14] MEDS ORDERED: FAMO-63 PO (05:19)
[2020-07-14] MEDS ORDERED: ONDA4TAB7 PO (05:19)
[2020-07-14] MEDS ORDERED: PROCHLORPERAZINE 10 MG/2 ML VIAL. IV ONE (05:30)
[2020-07-14] MEDS ORDERED: diphenhydrAMINE 50 MG/ML VIAL IVP ONE (05:30)
[2020-07-14 06:51] LABS: BARBITURATES NEG (NEG); BENZODIAZEPINES NEG (NEG); CANNABINOIDS POS (NEG); COCAINE NEG (NEG); METHADONE NEG (NEG); OPIATES POS (NEG); PHENCYCLIDINE NEG (NEG)
[2020-07-14 06:56] LABS: AMPHETAMINE/METHAMPHETAMINE NEG (NEG)
[2020-07-14 07:34] LABS: BACTERIA,URINE 0 /HPF (0-FEW); BILIRUBIN,URINE NEG (NEG); CLARITY,URINE CLEAR; COLOR,URINE YELLOW; GLUCOSE,URINE NEG (NEG); NITRITE,URINE NEG (NEG); RBC,URINE 0 /HPF (0-2); SQUAMOUS EPITHELIAL CELL,UR FEW /LPF; UROBILINOGEN,URINE 0.2 mg/dL (0.2 mg/dL); WBC,URINE RARE /HPF (0-4)
== END 2020-07-14 06:00 | disposition home or self-care (01) ==
LOC: ER 01:10
DX: K29.70 Gastritis, unspecified, without bleeding (principal); R11.15 Cyclical vomiting syndrome unrelated to migraine; E86.0 Dehydration; K21.9 Gastro-esophageal reflux disease without esophagitis; K52.89 Other specified noninfective gastroenteritis and colitis; F12.10 Cannabis abuse, uncomplicated
CPT/HCPCS: 36415; 74022; 80048; 80076; 80307; 81001; 82150; 83690; 84484; 85007; 85025; 96361; 96372; 96374; 96375; 99284; J0780; J1200; J2270; J2405; J3490; J7120

== ENCOUNTER 2020-08-25 20:40 | Emergency (ER) | payer SELFPAY ==
[~2020-08-25] VITALS: Ht 188 cm; Wt 123.9 kg
[~2020-08-25 20:40] MED LIST changes: +ONDA4TAB7 PO
--- NOTE | 2020-08-25 21:11 | PHYS DOC ---
Past History Past Medical History: GERD, IBS Additional Past Medical Histor: colitis; poss cyclic vomiting syndrome (ADRIÁN DICK APRN) Past Surgical History: Tonsillectomy (ADRIÁN DICK APRN) Smoking: Non-smoker Alcohol Use: None Drug Use: Marijuana (ADRIÁN DICK APRN) General Adult EDM: Chief Complaint: GI PROBLEM HPI: HPI: Patient is a 24-year-old male who presents emergency department with complaints of epigastric pain, nausea, and vomiting that began this afternoon. Patient st ates he has chronic bowel problems but he is usually able to get his pain under control on his own. Patient denies any illicit drug use, denies drinking alcohol. The patient states that he does use a nicotine vape on a daily basis. He denies any fever, cough, sore throat, chest pain, palpitations, shortness of breath, fever, diarrhea, or hematemesis. Patient states that the pain in his epigastrium feels like a sharp stabbing sensation. He currently rates pain a 10 out of 10 on the pain scale, he denies any alleviating or exacerbating factors. (ADRIÁN DICK APRN) Review of Systems: Review of Systems: Complete ROS is negative unless otherwise noted in HPI. (ADRIÁN DICK APRN) Allergies: Allergies: Allergies Coded Allergies Type Severity Reaction Last Updated Verified No Known Drug Allergies 09/21/19 No (ADRIÁN DICK APRN) Physical Exam: PE: See Above Constitutional: Well developed, well nourished, moderate distress, ill appearance, obese HENT: Normocephalic, atraumatic, bilateral external ears normal, nose normal; dry mucous membranes, dry lips Eyes: PERRLA, EOMI, conjunctiva normal, no discharge. [] Neck: Normal range of motion, no stridor. [] Cardiovascular:Heart rate regular rhythm Lungs & Thorax: Respirations even and unlabored, no retractions, no respiratory distress Abdomen: soft, epigastric tenderness to palpation, no rebound tenderness, no guarding, no palpable masses Skin: Warm, diaphoretic, no erythema, no rash. [] Extremities: No cyanosis, ROM intact, no edema. [] Neurologic: Alert and oriented X 3, no focal deficits noted. [] Psychologic: Affect normal, judgement normal, mood normal. [] (ADRIÁN DICK APRN) PE: Constitutional: Well developed, obese, no acute distress, non-toxic appearance HENT: Normocephalic, atraumatic Eyes: Conjunctiva normal, no discharge Neck: Normal range of motion, no tenderness, supple Lungs & Thorax: No respiratory distress, equal chest rise and fall Abdomen: Soft, mild diffuse tenderness, no guarding/rebound tenderness, obese Skin: Warm, dry, no erythema, no rash Back: No tenderness, no CVA tenderness Extremities: No tenderness, ROM intact, no edema Neurologic: Alert and oriented X 3, no focal deficits noted Psychologic: Affect anxious, judgment normal (DARIN MURILLO DO) Current Patient Data: Vital Signs: Vital Signs Date Time Temp Pulse Resp B/P (MAP) Pulse Ox O2 Delivery O2 Flow Rate FiO2 08/25/20 20:40 72 18 163/90 [phone] (ADRIÁN DICK APRN) EKG: EKG: [] (ADRIÁN DICK APRN) Radiology/Procedures: Radiology/Procedures: [] (ADRIÁN DICK APRN) Heart Score: Risk Factors: Risk Factors: DM, Current or recent (<one month) smoker, HTN, HLP, family history of CAD, obesity. Risk Scores: Score 0 - 3: 2.5% MACE over next 6 weeks - Discharge Home Score 4 - 6: 20.3% MACE over next 6 weeks - Admit for Clinical Observation Score 7 - 10: 72.7% MACE over next 6 weeks - Early Invasive Strategies (ARDIÁN DICK APRN) Course & Med Decision Making: Course & Med Decision Making Pertinent Labs and Imaging studies reviewed. (See chart for details) 2143- Report to Dr. Murillo at this time. [] (ADRIÁN DICK APRN) Course & Med Decision Making 2199- Sign out received from Fadi HORN for patient with concern for cyclic vomiting syndrome. Reports similar to prior. IVF hydration given. Labs obtained and posted to chart. Symptomatic treatment provided. Labs pending at time of sign out. Paitent seen and evaluated by myself. UA not collected as patient reports unable to provide. Repeat symptomatic therapies provided. Patient stable for discharge with outpatient follow-up with PCP/GI. GI referral provided. Outpatient clinics also provided. Discussed findings and plan with patient and family, who acknowledge understanding and agreement. (DARIN MURILLO DO) Fátima Disclaimer: Fátima Disclaimer: This electronic medical record was generated, in whole or in part, using a voice recognition dictation system. (ADRIÁN DICK APRN) Departure Departure: Impression: Primary Impression: Cyclic vomiting syndrome Disposition: 01 DC HOME SELF CARE/HOMELESS Condition: STABLE Referrals: [facility] (PCP) DEMOND HEATH MD Patient Instructions: Clear Liquid Diet, Hxip-xx-Nuse, Cyclic Vomiting Syndrome Scripts Ondansetron (ONDANSETRON ODT) 4 Mg Tab.rapdis 1 TAB PO PRN Q6-8HRS PRN for NAUSEA, #16 TAB Prov: DARIN MURILLO DO 08/25/20 Famotidine (PEPCID) 20 Mg Tablet 1 TAB PO BID for Gastritis, #30 TAB Prov: DARIN MURILLO DO 08/25/20 Hyoscyamine Sulfate (LEVSIN-SL) 0.125 Mg Tab.subl 0.125 MG SL Q4-6HRS PRN for PAIN, #20 TAB Prov: DARIN MURILLO DO 08/25/20 Attending Signature Attending Signature I have personally interviewed and examined the patient. All charts, labs, and imaging studies were reviewed. I agree with the PA/HEALTH AND WELLNESS COORDINATOR's findings, exam, and plan. (DARIN MURILLO DO) ADRIÁN DICK APRN Aug 25, 2020 21:11 DARIN MURILLO DO Aug 25, 2020 22:53
[2020-08-25] MEDS ORDERED: PROCHLORPERAZINE 10 MG/2 ML VIAL. IV ONE (21:15)
[2020-08-25] MEDS ORDERED: IV NORMAL SALINE 1,000ML 1,000 ML IV ONE (21:15)
[2020-08-25] MEDS ORDERED: MORPHINE SULFATE 4 MG/ML DISP.SYRIN. IV ONE (21:15)
[2020-08-25] MEDS ORDERED: FAMOTIDINE 20 MG/2 ML VIAL IVP ONE (21:15)
[2020-08-25 21:43] LABS: BASO # 0.1 x10^3/uL (0.0-0.2); BASO % 1 % (0-3); EOS # 0.1 x10^3/uL (0.0-0.7); EOS % 1 % (0-3); HEMOGLOBIN 17.1 g/dL (13.0-17.5); LYMPH # 2.5 x10^3/uL (1.0-4.8); LYMPH % 24 % (24-48); MEAN CORPUSCULAR HEMOGLOBIN 29 pg (25-35); MEAN CORPUSCULAR HGB CONC 35 g/dL (31-37); MEAN CORPUSCULAR VOLUME 84 fL (79-100); MONO # 0.6 x10^3/uL (0.0-1.1); MONO % 6 % (0-9); NEUT # 6.9 x10^3uL (1.8-7.7); NEUT % 68 % (31-73); PLATELET COUNT 376 x10^3/uL (140-400); RED BLOOD COUNT 5.87 x10^6/uL (4.30-5.70); RED CELL DISTRIBUTION WIDTH 13.6 % (11.5-14.5); WHITE BLOOD COUNT 10.3 x10^3/uL (4.0-11.0)
[2020-08-25 21:52] LABS: CALCIUM 10.9 mg/dL (8.5-10.1); CREATININE 0.9 mg/dL (0.7-1.3); GFR 104.6; POTASSIUM 3.8 mmol/L (3.5-5.1)
[2020-08-25 21:57] LABS: ALBUMIN 5.1 g/dL (3.4-5.0); ALBUMIN/GLOBULIN RATIO 1.5 (1.0-1.7); MAGNESIUM 2.1 mg/dL (1.8-2.4); TOTAL BILIRUBIN 0.8 mg/dL (0.2-1.0); TOTAL PROTEIN 8.5 g/dL (6.4-8.2)
[2020-08-25] MEDS ORDERED: HYOS0.1265 SL (22:52)
[2020-08-25] MEDS ORDERED: ONDA4TAB12 PO (22:52)
[2020-08-25] MEDS ORDERED: FAMO-63 PO (22:52)
[2020-08-25] MEDS ORDERED: ONDANSETRON PF 4 MG/2 ML VIAL. IVP ONE (23:00)
[2020-08-25] MEDS ORDERED: KETOROLAC 15 MG/ML VIAL. IVP ONE (23:30)
[2020-08-25 23:45] VITALS: BP 160/92
== END 2020-08-25 23:50 | disposition home or self-care (01) ==
LOC: ER 20:40
DX: R11.15 Cyclical vomiting syndrome unrelated to migraine (principal); K21.9 Gastro-esophageal reflux disease without esophagitis; K58.9 Irritable bowel syndrome, unspecified
CPT/HCPCS: 36415; 80053; 83690; 83735; 85025; 96361; 96374; 96375; 99284; J0780; J1885; J2060; J2270; J2405; J3490; J7030

== ENCOUNTER 2020-12-19 17:04 | Emergency (ER) | payer SELFPAY ==
[~2020-12-19] VITALS: Ht 188 cm; Wt 110.0 kg
[~2020-12-19 17:04] MED LIST changes: +HYOS0.1265 SL; +ONDA4TAB12 PO
--- NOTE | 2020-12-19 17:32 | PHYS DOC ---
Past History Past Medical History: GERD, IBS Additional Past Medical Histor: colitis; poss cyclic vomiting syndrome, pituitary adenoma Past Surgical History: Tonsillectomy Smoking: Non-smoker Alcohol Use: None Drug Use: Marijuana Adult General Chief Complaint Chief Complaint: FATIGUE HPI HPI Patient is a 25-year-old male, vital signs reviewed, presents emergency department with chief complaint of cyclic vomiting syndrome. Patient states at around noon today he started to become anxious, states this is a trigger for his cyclic vomiting, states that he started vomiting numerous amount of times reporting yellow vomitus without blood for the first 15-20 then states he has been retching since. Patient states he is unable to hold any fluids or food down. Patient states his abdomen hurts all over, reporting a 10/10 pain in a 1- 10 pain scale. Patient reports a past medical history of a pituitary tumor, states he was followe for several years at [facility] until he was 19 years old and was unable to return related to over age. Patient reports he has not seen a primary care physician or had his pituitary tumor reevaluated since. Patient states he does have a mild headache however reports his cyclic vomiting presentation is similar to other cyclic vomiting presentations. Patient denies any recent fever or chills, denies any recent COVID-19 exposure. Patient denies allergies to medications, states he does not take any prescription medications at home. Patient denies any other physical complaints or physical concerns. Review of Systems Review of Systems 14 body systems of review of systems have been reviewed. See HPI for pertinent positives and negative responses, otherwise all other systems are negative, nonpertinent or noncontributory. Allergies Allergies Allergies Coded Allergies Type Severity Reaction Last Updated Verified haloperidol Allergy Unknown 12/19/20 Yes Physical Exam Physical Exam Constitutional: Well developed, well nourished, patient in acute distress, hyperventilating during physical examination, toxic in appearance. HENT: Normocephalic, atraumatic, bilateral external ears normal, oropharynx moist, no oral exudates, nose normal. Eyes: PERRLA, EOMI, conjunctiva normal, no discharge. Neck: Normal range of motion, no tenderness, supple, no stridor. Cardiovascular:Heart rate regular rhythm, no murmur, tachycardic heart rate 110 during physical examination otherwise heart sounds S1-S2. Lungs & Thorax: Bilateral breath sounds clear to auscultation no adventitious lung sounds appreciated. Abdomen: Bowel sounds normal, soft, generalized tenderness all 4 quadrants to palpation, no masses, no pulsatile masses. Skin: Warm, dry, no erythema, no rash. Back: No tenderness, no CVA tenderness. Extremities: No tenderness, no cyanosis, no clubbing, ROM intact, no edema. Neurologic: Alert and oriented X 3, normal motor function, normal sensory function, no focal deficits noted. Psychologic: Affect normal, judgement normal, mood normal. Current Patient Data Vital Signs Vital Signs Date Time Temp Pulse Resp B/P (MAP) Pulse Ox O2 Delivery O2 Flow Rate FiO2 12/19/20 17:16 64 18 149/100 (116) 100 Room Air Lab Results Laboratory Tests Test 12/19/20 17:26 12/19/20 20:16 White Blood Count 12.5 x10^3/uL Red Blood Count 5.33 x10^6/uL Hemoglobin 15.6 g/dL Hematocrit 45.1 % Mean Corpuscular Volume 85 fL Mean Corpuscular Hemoglobin 29 pg Mean Corpuscular Hemoglobin Concent 35 g/dL Red Cell Distribution Width 13.5 % Platelet Count 312 x10^3/uL Neutrophils (%) (Auto) 81 % Lymphocytes (%) (Auto) 13 % Monocytes (%) (Auto) 6 % Eosinophils (%) (Auto) 0 % Basophils (%) (Auto) 1 % Neutrophils # (Auto) 10.0 x10^3uL Lymphocytes # (Auto) 1.6 x10^3/uL Monocytes # (Auto) 0.7 x10^3/uL Eosinophils # (Auto) 0.0 x10^3/uL Basophils # (Auto) 0.1 x10^3/uL Sodium Level 141 mmol/L Potassium Level 4.1 mmol/L Chloride Level 102 mmol/L Carbon Dioxide Level 17 mmol/L Anion Gap 22 Blood Urea Nitrogen 13 mg/dL Creatinine 0.9 mg/dL Estimated GFR (Cockcroft-Gault) 103.7 BUN/Creatinine Ratio 14 Glucose Level 128 mg/dL Calcium Level 10.0 mg/dL Total Bilirubin 1.1 mg/dL Aspartate Amino Transf (AST/SGOT) 20 U/L Alanine Aminotransferase (ALT/SGPT) 30 U/L Alkaline Phosphatase 61 U/L Total Protein 7.9 g/dL Albumin 4.8 g/dL Albumin/Globulin Ratio 1.5 Lipase 60 U/L Urine Collection Type Unknown Urine Color Yellow Urine Clarity Clear Urine pH 7.0 Urine Specific [place] 1.020 Urine Protein 30 mg/dl Urine Glucose (UA) Neg mg/dL Urine Ketones (Stick) >=160 mg/dL Urine Blood Neg Urine Nitrite Neg Urine Bilirubin Neg Urine Urobilinogen Dipstick 0.2 mg/dL Urine Leukocyte Esterase Neg Urine RBC 0 /HPF Urine WBC 0 /HPF Urine Squamous Epithelial Cells Occ /LPF Urine Bacteria 0 /HPF Current Medications Medications (Trade) Dose Ordered Sig/Judith Route PRN Reason Start Time Stop Time Status Last Admin Dose Admin Sodium Chloride 1,000 ml @ 1,000 mls/hr 1X ONCE IV 12/19/20 17:45 12/19/20 18:44 DC 12/19/20 17:52 Prochlorperazine Edisylate (Compazine) 10 mg 1X ONCE IV 12/19/20 17:45 12/19/20 17:46 DC 12/19/20 17:52 Diphenhydramine HCl (Benadryl) 50 mg 1X ONCE IVP 12/19/20 17:45 12/19/20 17:46 DC 12/19/20 17:52 Fentanyl Citrate (Fentanyl 2ml Vial) 100 mcg 1X ONCE IVP 12/19/20 17:45 12/19/20 17:46 DC 12/19/20 17:52 Hydromorphone HCl (Dilaudid) 1 mg 1X ONCE IVP 12/19/20 19:45 12/19/20 19:46 DC 12/19/20 19:52 Metoclopramide HCl (Reglan Vial) 10 mg 1X ONCE IVP 12/19/20 19:45 12/19/20 19:46 DC 12/19/20 19:47 Sodium Chloride 1,000 ml @ 1,000 mls/hr 1X ONCE IV 12/19/20 19:45 12/19/20 20:44 DC 12/19/20 19:47 Iohexol (Omnipaque 300 Mg/ml) 75 ml 1X ONCE IV 12/19/20 19:45 12/19/20 19:46 DC 12/19/20 19:59 EKG EKG [] Radiology/Procedures Radiology/Procedures PATIENT: RAY SEN ACCOUNT: [id number] : 1995 LOCATION: ER AGE: 25 SEX: M EXAM STATUS: REG ER ORD. PHYSICIAN: DARIN LAGUNAS APRN REASON: HX PITUITARY TUMOR, INTRACTABLE NAUSEA/VOMITING OMNI 300 75ML PROCEDURE: CT HEAD WO/W CONTRAST CT HEAD WITHOUT AND WITH IV CONTRAST History: Reason: HX PITUITARY TUMOR, INTRACTABLE NAUSEA/VOMITING OMNI 300 75ML / Spl. Instructions: OMNI 300, 75ml / History: Comparison: January 09, 2009 Technique: Noncontrast CT imaging was performed of the head. Exposure: One or more of the following individualized dose reduction techniques were utilized for this examination: 1. Automated exposure control 2. Adjustment of the mA and/or kV according to patient size 3. Use of iterative reconstruction technique. Findings: No intracranial hemorrhage. No mass effect. No hydrocephalus. Extra-axial spaces are unremarkable. Imaged orbits are unremarkable. Imaged paranasal sinuses and mastoid air cells are clear. No acute calvarial fracture. Impression: 1. No acute intracranial abnormality. Electronically signed by: Umer Hernandez DO (12/19/2020 9:01 PM) [facility]ENTERInteractif Visuel SystèmeSELINA DICTATED AND SIGNED BY: UMER HERNANDEZ DO DATE: 12/19/202057 CC: DARIN LAGUNAS APRN; EMERGENCY,DEPARTMENT; PCP,NO ~MTH0 0 PATIENT: RAY SEN ACCOUNT: [id number] : 1995 LOCATION: ER AGE: 25 SEX: M EXAM STATUS: DEP ER ORD. PHYSICIAN: DARIN LAGUNAS APRN REASON: HX PITUITARY TUMOR, INTRACTABLE NAUSEA/VOMITING OMNI 300 75ML PROCEDURE: CT HEAD WO/W CONTRAST ADDENDUM ADDENDUM #1 Addendum: TECHNIQUE: Head CT with contrast was also performed No pathologic enhancement. Patent superior sagittal, straight, transverse and sigmoid venous sinuses. Electronically signed by: Umer Hernandez DO (12/20/2020 12:18 AM) [facility]ENTERQumuSELINA ORIGINAL REPORT CT HEAD WITHOUT AND WITH IV CONTRAST History: Reason: HX PITUITARY TUMOR, INTRACTABLE NAUSEA/VOMITING OMNI 300 75ML / Spl. Instructions: OMNI 300, 75ml / History: Comparison: January 09, 2009 Technique: Noncontrast CT imaging was performed of the head. Exposure: One or more of the following individualized dose reduction techniques were utilized for this examination: 1. Automated exposure control 2. Adjustment of the mA and/or kV according to patient size 3. Use of iterative reconstruction technique. Findings: No intracranial hemorrhage. No mass effect. No hydrocephalus. Extra-axial spaces are unremarkable. Imaged orbits are unremarkable. Imaged paranasal sinuses and mastoid air cells are clear. No acute calvarial fracture. Impression: 1. No acute intracranial abnormality. Electronically signed by: Umer Hernandez DO (12/19/2020 9:01 PM) [facility] [employer] DICTATED AND SIGNED BY: UMER HERNANDEZ DO DATE: 12/20/2014 CC: DARIN LAGUNAS APRN; EMERGENCY,DEPARTMENT; PCP,NO ~ CT HEAD WITHOUT AND WITH IV CONTRAST History: Reason: HX PITUITARY TUMOR, INTRACTABLE NAUSEA/VOMITING OMNI 300 75ML / Spl. Instructions: OMNI 300, 75ml / History: Comparison: January 09, 2009 Technique: Noncontrast CT imaging was performed of the head. Exposure: One or more of the following individualized dose reduction techniques were utilized for this examination: 1. Automated exposure control 2. Adjustment of the mA and/or kV according to patient size 3. Use of iterative reconstruction technique. Findings: No intracranial hemorrhage. No mass effect. No hydrocephalus. Extra-axial spaces are unremarkable. Imaged orbits are unremarkable. Imaged paranasal sinuses and mastoid air cells are clear. No acute calvarial fracture. Impression: 1. No acute intracranial abnormality. Electronically signed by: Umer Hernandez DO (12/19/2020 9:01 PM) [facility]ELCH[facility]ST[facility] DICTATED AND SIGNED BY: UMER HERNANDEZ DO DATE: 12/19/202057 CC: DARIN LAGUNAS APRN; EMERGENCY,DEPARTMENT; PCP,NO ~MTH0 0 Heart Score C/O Chest Pain: No Risk Factors: Risk Factors: DM, Current or recent (<one month) smoker, HTN, HLP, family history of CAD, obesity. Risk Scores: Risk Factors: DM, Current or recent (<one month) smoker, HTN, HLP, family history of CAD, obesity. Course & Med Decision Making Course & Med Decision Making Pertinent Labs and Imaging studies reviewed. (See chart for details) 25-year-old male, vital signs reviewed, presents to the emergency department c omplaining of cyclic vomiting syndrome reporting bilious vomiting that turned into retching prior to arrival to the ER today. Physical examination consistent with patient's chief complaint is cyclic vomiting syndrome. Will order saline lock, CBC, CMP, lipase, urinalysis assay to rule out infectious process, will also order IV saline lock, 1 L normal saline, IV Benadryl, IV Compazine, IV fentanyl for acute pain. Will await a period of time and reevaluate. After period of time, reevaluation of the patient, patient states that he is still nauseated and states his pain is starting to come back, related to patient history of pituitary tumor that has not been evaluated for approximately 6 years, will order CT head with and without contrast. Will order an additional liter of normal saline, Reglan IV, IV Dilaudid. During initial exam, patient was in increased distress, hyperventilating, retching into emesis bag. Was initially and able to perform a neurological exam, upon reevaluation of the patient, patient's neurological exam was not within normal limits. CBC consistent with bilious vomiting and cyclic vomiting syndrome, lipase, CMP, urinalysis assay nonconcerning, patient had CO2 level 17 with anion gap 22, this is most likely related to patient's presentation of hyperventilation and cyclic vomiting. Patient CT head read negative for acute process per house radiologist rotation. Upon reevaluation of the patient, patient is in no distress, is nontoxic in appearance, patient states he feels much better and is ready to go home patient states he is thankful for the care he received today and feels he cannot care for himself at home without further medication intervention. Discussed with patient need to follow-up with neurology for ongoing assessment of his pituitary tumor. Patient gave verbal understanding of discharge home instructions, follow-up with PCP soon, neurology follow-up, return to ER precautions and concerns, patient was discharged home without incident. Dragon Disclaimer Dragon Disclaimer This electronic medical record was generated, in whole or in part, using a voice recognition dictation system. Departure Departure: Impression: Primary Impression: Cyclic vomiting syndrome Disposition: HOME / SELF CARE / HOMELESS Condition: GOOD Referrals: PCP,NO (PCP) ROBBY MCGRAW Patient Instructions: Cyclic Vomiting Syndrome Additional Instructions: You presented to the emergency department complaining of cyclic vomiting syndrome, however you did complain of a history of pituitary gland tumor, a CT of the head was performed, there were no concerning findings that would require immediate attention with a neurologist or neurosurgeon. I did run a CBC, and CMP, there were no concerning findings in your laboratory that would require a hospital admission tonight. You stated the medications you are given in the emergency department helped you, stated you are now nausea free and symptom free. Please follow-up with a primary care neurologist as we discussed, I have provided a primary health care provider SALINA Drake to follow-up with in the event you may need to have a referral process. Please return to the emergency department for worsening symptoms or other concerns. EMERGENCY DEPARTMENT GENERAL DISCHARGE INSTRUCTIONS Thank you for coming to [facility] (ED) today and trusting us with you care. We trust that you had a positivie experience in our Emergency Department. If you wish to speak to the department management, you may call the director at [phone]. YOUR FOLLOW UP INSTRUCTIONS ARE FOLLOWS: 1. Do you have a private Doctor? If you do not have a private doctor, please ask for a resource list of physicians or clinics that may be able to assist you with follow up care. 2. The Emergency Physician has interpreted your x-rays. The X-Ray specialist will also review them. If there is a change in the findings, you will be notified in 48 hours when at all possible. 3. A lab test or culture has been done, your results will be reviewed and you will be notified if you need a change in treatment. ADDITIONAL INSTRUCTIONS AND INFORMATION: 1. Your care today has been supervised by a physician who is specially trained in emergency care. Many problems require more than one evaluation for a complete diagnosis and treatment. We recommend that you schedule your follow up appointment as recommended to ensure complete treatment of you illness or injury. If you are unable to obtain follow up care and continue to have a problem, or if your condition worsens, we recommend that you return to the ED. 2. We are not able to safely determine your condition over the phone nor are we able to give sound medical advice over the phone. For these safety reasons, if you call for medical advice we will ask you to come to the ED for further evaluation. 3. If you have any questions regarding these discharge instructions please call the ED at [phone]. SAFETY INFORMATION: In the interest of safety, wellness, and injury prevention; we encourage you to wear your sealbelt, if you smoke; quite smoking, and we encourage family to use a protective helmet for bicycling and other sporting events that present an increased risk for head injury. IF YOUR SYMPTOMS WORSEN OR NEW SYMPTOMS DEVELOP, OR YOU HAVE CONCERNS ABOUT YOUR CONDITION; OR IF YOUR CONDITION WORSENS WHILE YOU ARE WAITING FOR YOUR FOLLOW UP APPOINTMENT; EITHER CONTACT YOUR PRIMARY CARE DOCTOR, THE PHYSICIAN WHOSE NAME AND NUMBER YOU WERE GIVEN, OR RETURN TO THE ED IMMEDIATELY. DARIN LAGUNAS APRN December 19, 2020 17:31
[2020-12-19] MEDS ORDERED: PROCHLORPERAZINE 10 MG/2 ML VIAL. IV ONE (17:45)
[2020-12-19] MEDS ORDERED: IV NORMAL SALINE 1,000ML 1,000 ML IV ONE ×2 (17:45→19:45)
[2020-12-19] MEDS ORDERED: diphenhydrAMINE 50 MG/ML VIAL IVP ONE (17:45)
[2020-12-19 17:59] LABS: BASO # 0.1 x10^3/uL (0.0-0.2); BASO % 1 % (0-3); EOS % 0 % (0-3); HEMATOCRIT 45.1 % (39.0-53.0); HEMOGLOBIN 15.6 g/dL (13.0-17.5); LYMPH # 1.6 x10^3/uL (1.0-4.8); LYMPH % 13 % (24-48); MEAN CORPUSCULAR HEMOGLOBIN 29 pg (25-35); MEAN CORPUSCULAR HGB CONC 35 g/dL (31-37); MEAN CORPUSCULAR VOLUME 85 fL (79-100); MONO # 0.7 x10^3/uL (0.0-1.1); MONO % 6 % (0-9); NEUT % 81 % (31-73); PLATELET COUNT 312 x10^3/uL (140-400); RED BLOOD COUNT 5.33 x10^6/uL (4.30-5.70); RED CELL DISTRIBUTION WIDTH 13.5 % (11.5-14.5); WHITE BLOOD COUNT 12.5 x10^3/uL (4.0-11.0)
[2020-12-19 18:04] LABS: CREATININE 0.9 mg/dL (0.7-1.3); GFR 103.7; POTASSIUM 4.1 mmol/L (3.5-5.1)
[2020-12-19 18:12] LABS: ALBUMIN 4.8 g/dL (3.4-5.0); ALBUMIN/GLOBULIN RATIO 1.5 (1.0-1.7); TOTAL BILIRUBIN 1.1 mg/dL (0.2-1.0); TOTAL PROTEIN 7.9 g/dL (6.4-8.2)
[2020-12-19] MEDS ORDERED: HYDROmorphone PF 1 MG/ML DISP.SYRIN IVP ONE (19:45)
[2020-12-19] MEDS ORDERED: IOHEXOL 300 MG/ML 75 ML VIAL. IV ONE (19:45)
[2020-12-19] MEDS ORDERED: METOCLOPRAMIDE HCL 10 MG/2 ML VIAL. IVP ONE (19:45)
--- NOTE | 2020-12-19 21:04 | RAD ---
CT HEAD WITHOUT AND WITH IV CONTRAST History: Reason: HX PITUITARY TUMOR, INTRACTABLE NAUSEA/VOMITING OMNI 300 75ML / Spl. Instructions: O MNI 300, 75ml / History: Comparison: January 09, 2009 Technique: Noncontrast CT imaging was performed of the head. Exposure: One or more of the following individualized dose reduction techniques were utilized for thi s examination: 1. Automated exposure control 2. Adjustment of the mA and/or kV according to patient size 3. Use of iterative reconstruction technique. Findings: No intracranial hemorrhage. No mass effect. No hydrocephalus. Extra-axial spaces are unremarkable. Imaged orbits are unremarkable. Imaged paranasal sinuses and mastoid air cells are clear. No acute ca lvarial fracture. Impression: 1. No acute intracranial abnormality. Electronically signed by: Umer Hernandez DO (12/19/2020 9:01 PM) [facility]
[2020-12-19 22:20] VITALS: BP 132/70
[2020-12-19 22:33] LABS: CLARITY,URINE CLEAR; COLOR,URINE YELLOW
[2020-12-19 22:34] LABS: BILIRUBIN,URINE NEG (NEG); GLUCOSE,URINE NEG (NEG); NITRITE,URINE NEG (NEG); UROBILINOGEN,URINE 0.2 mg/dL (0.2 mg/dL)
[2020-12-19 22:37] LABS: BACTERIA,URINE 0 /HPF (0-FEW); RBC,URINE 0 /HPF (0-2); SQUAMOUS EPITHELIAL CELL,UR OCC /LPF; WBC,URINE 0 /HPF (0-4)
== END 2020-12-19 22:20 | disposition home or self-care (01) ==
LOC: ER 17:04
DX: R11.15 Cyclical vomiting syndrome unrelated to migraine (principal); R51.9 Headache, unspecified; K21.9 Gastro-esophageal reflux disease without esophagitis; K58.9 Irritable bowel syndrome, unspecified; Z88.8 Allergy status to other drugs, medicaments and biological substances
CPT/HCPCS: 36415; 70470; 80053; 81001; 83690; 85025; 96361; 96374; 96375; 99285; J0780; J1170; J1200; J2765; J3010; J7030; Q9967

== ENCOUNTER 2021-06-04 13:03 | Emergency (ER) | payer SELFPAY ==
[~2021-06-04] VITALS: Ht 188 cm; Wt 124.0 kg
--- NOTE | 2021-06-04 13:13 | PHYS DOC ---
Past History Past Medical History: GERD, IBS Additional Past Medical Histor: colitis; poss cyclic vomiting syndrome, pituitary adenoma Past Surgical History: Tonsillectomy Smoking: Non-smoker Alcohol Use: None Drug Use: Marijuana Adult General Chief Complaint Chief Complaint: NAUSEA/VOMITING/[facility] HPI Patient is a 25-year-old male presenting for nausea and vomiting. Patient states this is an acute on chronic issue. He suffers from this multiple times weekly. Patient denies any known inciting event, trauma, concerning ingestion, recent travel or sick contact. Patient describes generalized abdominal cramping with cyclic nausea and vomit that is intractable. He has not taken anything in attempt to alleviate his symptoms. Reports he has had decreased p.o. intake as a result ongoing symptoms. States he is come to the ER several times for this in the past but has been able to control it by himself for a while without requiring medical intervention. He has no history of any intra-abdominal abnormalities, no known medical diagnoses, takes no medications on a daily basis, he is not vaccinated against COVID-19 Review of Systems Review of Systems Fourteen body systems of review of systems have been reviewed. See HPI for pertinent positives and negative responses, other membreno all other systems are negative, non-pertinent or non-contributory Allergies Allergies Allergies Coded Allergies Type Severity Reaction Last Updated Verified haloperidol Allergy Unknown 12/19/20 Yes Physical Exam Physical Exam Constitutional: Well developed, well nourished, moderate distress and dry heaving on arrival but is non-toxic in appearance. HENT: Normocephalic, atraumatic, bilateral external ears normal, oropharynx moist, no oral exudates, nose normal. Eyes: PERRLA, EOMI, conjunctiva normal, no discharge. Neck: Normal range of motion, no tenderness, supple, no stridor. Cardiovascular: Heart rate regular, sinus rhythm, no murmurs rubs or gallops Lungs & Thorax: Bilateral breath sounds clear to auscultation Abdomen: Bowel sounds normal, soft, no tenderness, no masses, no pulsatile masses. Nonsurgical abdomen, no peritoneal signs Skin: Warm, dry, no erythema, no rash. Back: No tenderness, no CVA tenderness. Extremities: No tenderness, no cyanosis, no clubbing, ROM intact, no edema. Neurologic: Alert and oriented X 3, grossly normal motor & sensory function, no focal deficits noted. Psychologic: Anxious affect and mood Current Patient Data Vital Signs Vital Signs Date Time Temp Pulse Resp B/P (MAP) Pulse Ox O2 Delivery O2 Flow Rate FiO2 06/04/21 13:19 98.0 65 22 129/85 (100) 99 06/04/21 13:28 Room Air Vital Signs Date Time Temp Pulse Resp B/P (MAP) Pulse Ox O2 Delivery O2 Flow Rate FiO2 06/04/21 14:32 69 20 141/72 (95) 100 Room Air 06/04/21 13:19 98.0 Lab Results Laboratory Tests Test 06/04/21 13:17 White Blood Count 11.8 x10^3/uL Red Blood Count 5.17 x10^6/uL Hemoglobin 15.3 g/dL Hematocrit 44.7 % Mean Corpuscular Volume 86 fL Mean Corpuscular Hemoglobin 30 pg Mean Corpuscular Hemoglobin Concent 34 g/dL Red Cell Distribution Width 13.1 % Platelet Count 323 x10^3/uL Neutrophils (%) (Auto) 59 % Lymphocytes (%) (Auto) 29 % Monocytes (%) (Auto) 9 % Eosinophils (%) (Auto) 2 % Basophils (%) (Auto) 1 % Neutrophils # (Auto) 6.9 x10^3uL Lymphocytes # (Auto) 3.4 x10^3/uL Monocytes # (Auto) 1.0 x10^3/uL Eosinophils # (Auto) 0.3 x10^3/uL Basophils # (Auto) 0.1 x10^3/uL Sodium Level 138 mmol/L Potassium Level 3.5 mmol/L Chloride Level 100 mmol/L Carbon Dioxide Level 21 mmol/L Anion Gap 17 Blood Urea Nitrogen 16 mg/dL Creatinine 0.9 mg/dL Estimated GFR (Cockcroft-Gault) 103.7 BUN/Creatinine Ratio 18 Glucose Level 120 mg/dL Calcium Level 9.2 mg/dL Total Bilirubin 0.5 mg/dL Aspartate Amino Transf (AST/SGOT) 18 U/L Alanine Aminotransferase (ALT/SGPT) 31 U/L Alkaline Phosphatase 65 U/L Total Protein 7.6 g/dL Albumin 4.3 g/dL Albumin/Globulin Ratio 1.3 Lipase 97 U/L Current Medications Medications (Trade) Dose Ordered Sig/Judith Route PRN Reason Start Time Stop Time Status Last Admin Dose Admin Sodium Chloride 1,000 ml @ 1,000 mls/hr 1X ONCE IV 06/04/21 13:30 06/04/21 14:29 DC 06/04/21 13:26 Ondansetron HCl (Zofran) 4 mg 1X ONCE IVP 06/04/21 13:30 06/04/21 13:31 DC 06/04/21 13:26 Fentanyl Citrate (Fentanyl 2ml Vial) 50 mcg 1X ONCE IVP 06/04/21 13:30 06/04/21 13:31 DC 06/04/21 13:28 Metoclopramide HCl (Reglan Vial) 10 mg 1X ONCE IVP 06/04/21 14:15 06/04/21 14:29 DC 06/04/21 14:26 Fentanyl Citrate (Fentanyl 2ml Vial) 50 mcg 1X ONCE IVP 06/04/21 14:45 06/04/21 14:46 UNV EKG EKG [] Radiology/Procedures Radiology/Procedures [] Heart Score C/O Chest Pain: No Risk Factors: Risk Factors: DM, Current or recent (<one month) smoker, HTN, HLP, family history of CAD, obesity. Risk Scores: Risk Factors: DM, Current or recent (<one month) smoker, HTN, HLP, family history of CAD, obesity. Course & Med Decision Making Course & Med Decision Making ABCs unremarkable HPI physical exam and comprehensive ER work-up nonconcerning for any emergent or surgical issues Patient symptoms improved with provided intervention. This is a chronic issue for patient. I disclosed potential need for CT abdomen pelvis imaging but given asymptomatic nature of patient after intervention, this was deferred Placed PCP follow-up and appropriate precautions recommended with good understanding by patient, all questions and concerns addressed prior to ER departure Dragon Disclaimer Dragon Disclaimer This electronic medical record was generated, in whole or in part, using a voice recognition dictation system. Departure Departure: Impression: Primary Impression: Cyclic vomiting syndrome Disposition: HOME / SELF CARE / HOMELESS Condition: STABLE Referrals: PCP,ORIANA (PCP) Additional Instructions: You were seen for acute on chronic nausea vomit and generalized abdominal pain. It is unclear what caused your symptoms and what caused it is your chronic cyclic vomiting. Your symptoms improved with IV fluid rehydration, pain medication and antinausea medication. There is no further indication for diagnostic work-up in ER setting or hospital admission. With that said, it is pertinent that you contact your primary care physician first thing in the mornin g to review ER visit and discuss potential need for outpatient GI consultation for further work-up as indicated. You should return to the ED if you develop abdominal pain, fever > 100.3, black/bloody stools, black/bloody vomiting, cannot keep water down, or any other new or concerning symptoms. Scripts Promethazine Hcl (PROMETHAZINE HCL) 12.5 Mg Supp.rect 1 SUPP RC Q4-6HRS for nausea for 4 Days, #24 SUPP 0 Refills Prov: LUIS ANTONIO LEONARD DO 06/04/21 LUIS ANTONIO LEONARD DO Jun 04, 2021 13:13
[2021-06-04] MEDS ORDERED: IV NORMAL SALINE 1,000ML 1,000 ML IV ONE (13:30)
[2021-06-04] MEDS ORDERED: ONDANSETRON PF 4 MG/2 ML VIAL. IVP ONE (13:30)
[2021-06-04 14:06] LABS: BASO # 0.1 x10^3/uL (0.0-0.2); BASO % 1 % (0-3); EOS # 0.3 x10^3/uL (0.0-0.7); EOS % 2 % (0-3); HEMATOCRIT 44.7 % (39.0-53.0); HEMOGLOBIN 15.3 g/dL (13.0-17.5); LYMPH # 3.4 x10^3/uL (1.0-4.8); LYMPH % 29 % (24-48); MEAN CORPUSCULAR HEMOGLOBIN 30 pg (25-35); MEAN CORPUSCULAR HGB CONC 34 g/dL (31-37); MEAN CORPUSCULAR VOLUME 86 fL (79-100); MONO % 9 % (0-9); NEUT # 6.9 x10^3uL (1.8-7.7); NEUT % 59 % (31-73); PLATELET COUNT 323 x10^3/uL (140-400); RED BLOOD COUNT 5.17 x10^6/uL (4.30-5.70); RED CELL DISTRIBUTION WIDTH 13.1 % (11.5-14.5); WHITE BLOOD COUNT 11.8 x10^3/uL (4.0-11.0)
[2021-06-04] MEDS ORDERED: METOCLOPRAMIDE HCL 10 MG/2 ML VIAL. IVP ONE (14:15)
[2021-06-04 14:20] LABS: CALCIUM 9.2 mg/dL (8.5-10.1); CREATININE 0.9 mg/dL (0.7-1.3); GFR 103.7; POTASSIUM 3.5 mmol/L (3.5-5.1)
[2021-06-04 14:26] LABS: ALBUMIN 4.3 g/dL (3.4-5.0); ALBUMIN/GLOBULIN RATIO 1.3 (1.0-1.7); TOTAL BILIRUBIN 0.5 mg/dL (0.2-1.0); TOTAL PROTEIN 7.6 g/dL (6.4-8.2)
[2021-06-04] MEDS ORDERED: PROM12.554 RC (14:43)
[2021-06-04 15:00] VITALS: BP 132/88
== END 2021-06-04 15:20 | disposition home or self-care (01) ==
LOC: ER 13:03
DX: R11.15 Cyclical vomiting syndrome unrelated to migraine (principal); R10.84 Generalized abdominal pain; K21.9 Gastro-esophageal reflux disease without esophagitis; K58.9 Irritable bowel syndrome, unspecified; Z88.8 Allergy status to other drugs, medicaments and biological substances
CPT/HCPCS: 36415; 80053; 83690; 85025; 96361; 96374; 96375; 96376; 99284; J2405; J2765; J3010; J7030; 99285-25

== ENCOUNTER 2021-07-26 15:10 | Emergency (ER) | payer SELFPAY ==
[~2021-07-26] VITALS: Ht 188 cm; Wt 124.0 kg
[~2021-07-26 15:10] MED LIST changes: +PROM12.554 RC
[2021-07-26 15:16] VITALS: BP 132/88
[2021-07-26] MEDS ORDERED: IV NORMAL SALINE 1,000ML 1,000 ML IV ONE (15:30)
--- NOTE | 2021-07-26 15:31 | PHYS DOC ---
Past History Past Medical History: GERD, IBS Additional Past Medical Histor: colitis; poss cyclic vomiting syndrome, pituitary adenoma Past Surgical History: Tonsillectomy Smoking: Non-smoker Alcohol Use: None Drug Use: Marijuana General Adult EDM: Chief Complaint: NAUSEA/VOMITING/DIARRHEA HPI: HPI: 25-year-old male presents with vomiting. He has been vomiting for 4 days. The patient has intermittent episodes of vomiting with diarrhea nearly every month. They seem to come and go at random. It does not typically last for 4 days. Patient denies any new or unusual food exposures. He has not had a fever. He denies marijuana use. He stopped using it completely 2 months ago. He tells me that he has been seen several times for the symptoms with no diagnosis. He does not have health insurance and has not seen a specialist. He is [facility] get [facility]. Patient also has left upper quadrant abdominal pain. He describes it as an intense cramping. It starts after the vomiting. He denies any falls or trauma. The patient does not drink alcohol. Review of Systems: Review of Systems: Constitutional: Denies fever or chills Eyes: Denies change in visual acuity HENT: Denies nasal congestion or sore throat Respiratory: Denies cough or shortness of breath Cardiovascular: Denies chest pain or edema GI: Left upper quadrant abdominal pain, nausea, vomiting, diarrhea : Denies dysuria Musculoskeletal: Denies back pain or joint pain Integument: Denies rash Neurologic: Denies headache, focal weakness or sensory changes Endocrine: Denies polyuria or polydipsia Lymphatic: Denies swollen glands Psychiatric: Denies depression or anxiety Current Medications: Current Meds: Current Medications Medications (Trade) Dose Ordered Sig/Judith Start Time Stop Time Status Last Admin Dose Admin Ondansetron HCl (Zofran) 4 mg 1X ONCE 07/26/21 15:45 07/26/21 15:46 Sodium Chloride 1,000 ml @ 1,000 mls/hr 1X ONCE 07/26/21 15:30 07/26/21 16:29 Allergies: Allergies: Allergies Coded Allergies Type Severity Reaction Last Updated Verified haloperidol Allergy Unknown 12/19/20 Yes Physical Exam: PE: Constitutional: Well developed, well nourished, obese, mild acute distress, non- toxic appearance. [] HENT: Normocephalic, atraumatic, bilateral external ears normal, oropharynx moist, no oral exudates, nose normal. [] Eyes: PERRLA, EOMI, conjunctiva normal, no discharge. [] Neck: Normal range of motion, no tenderness, supple, no stridor. [] Cardiovascular: Heart rate regular rhythm, no murmur [] Lungs & Thorax: Bilateral breath sounds clear to auscultation [] Abdomen: Bowel sounds normal, soft, mild left upper quadrant tenderness without guarding, no masses, no pulsatile masses. [] Skin: Warm, dry, no erythema, no rash. [] Back: No tenderness, no CVA tenderness. [] Extremities: No tenderness, no cyanosis, no clubbing, ROM intact, no edema. [] Neurologic: Alert and oriented X 3, normal motor function, normal sensory function, no focal deficits noted. [] Psychologic: Affect normal, judgement normal, mood normal. [] Current Patient Data: Vital Signs: Vital Signs Date Time Temp Pulse Resp B/P (MAP) Pulse Ox O2 Delivery O2 Flow Rate FiO2 07/26/21 15:16 97.1 70 24 132/88 (103) 99 Room Air EKG: EKG: [] Radiology/Procedures: Radiology/Procedures: [] Impressions: EXAM: Abdomen and pelvis CT with intravenous contrast. HISTORY: Pain. TECHNIQUE: Computed tomographic images of the abdomen and pelvis were obtained following the administration of intravenous contrast. Multiplanar reformatting was performed. *One or more of the following individualized dose reduction techniques were utilized for this examination: 1. Automated exposure control. 2. Adjustment of the mA and/or kV according to patient size. 3. Use of iterative reconstruction technique. COMPARISON: 09/21/2019 and 11/28/2018. FINDINGS: Evaluation of the lower thorax demonstrates a partially calcified nodule at the left lung base measuring 1.4 cm, stable when allowing for differences in slice position and volume averaging. There is a 2.0 cm hypoechoic lesion within the left hepatic lobe along the falciform ligament. The gallbladder, pancreas and adrenal glands are unremarkable. The spleen is enlarged, measuring 16 cm. The kidneys are unremarkable. There is no appendicitis. There is no bowel obstruction. There is no abnormal bowel wall thickening. There is urinary bladder wall thickening. The aorta is normal in caliber. There is no lymphadenopathy. There is no acute or suspicious osseous finding. IMPRESSION: 1. Stable hypodense lesion along the falciform ligament, the appearance of which favors geographic fatty deposition. 2. Splenomegaly, slightly increased compared to the prior exam. 3. Mild urinary bladder wall thickening. This can be due to underdistention or cystitis. Correlate with urinalysis. 4. Stable 1.4 cm nodule with partial calcification within the left lung base. The greater than two-year course of stability and presence of calcification favors a benign granuloma. Electronically signed by: Socorro Stewart MD (07/26/2021 4:20 PM) [id number] DICTATED AND SIGNED BY: SOCORRO STEWART MD DATE: 07/26/21 161 CC: VÍCTOR LUZ DO; PCP,NO ~MTH0 0 Heart Score: C/O Chest Pain: N/A Risk Factors: Risk Factors: DM, Current or recent (<one month) smoker, HTN, HLP, family history of CAD, obesity. Risk Scores: Score 0 - 3: 2.5% MACE over next 6 weeks - Discharge Home Score 4 - 6: 20.3% MACE over next 6 weeks - Admit for Clinical Observation Score 7 - 10: 72.7% MACE over next 6 weeks - Early Invasive Strategies Course & Med Decision Making: Course & Med Decision Making Pertinent Labs and Imaging studies reviewed. (See chart for details) The patient CBC is unremarkable. His CT of the abdomen pelvis shows enlarged spleen but no other significant acute findings. He had some incidental chronic findings. See official read for more details. I have given the patient 2 doses of 4 mg of morphine for his discomfort. Zofran has controlled his vomiting. The patient's CMP and lipase are unremarkable. I recommended that he continue to try to get with a GI specialist at [place]. He is stable for discharge at this time. I will discharge him with a prescription for Zofran. [] Dragon Disclaimer: Dragrohit Disclaimer: This electronic medical record was generated, in whole or in part, using a voice recognition dictation system. Departure Departure: Impression: Primary Impression: Vomiting Additional Impression: Splenomegaly Disposition: HOME / SELF CARE / HOMELESS Condition: STABLE Referrals: PCP,NO (PCP) Patient Instructions: Cyclic Vomiting Syndrome, Nausea and Vomiting, [id number] Scripts Ondansetron (ONDANSETRON ODT) 4 Mg Tab.rapdis 1 TAB PO PRN Q6-8HRS PRN for VOMITING, #16 TAB Prov: VÍCTOR LUZ DO 07/26/21 VÍCTOR LUZ DO Jul 26, 2021 15:31
[2021-07-26] MEDS ORDERED: IOHEXOL 350 MG/ML 100 ML VIAL. ONE (15:37)
[2021-07-26] MEDS ORDERED: CONTRAST GIVEN. MC PRN (15:45)
[2021-07-26] MEDS ORDERED: ONDANSETRON PF 4 MG/2 ML VIAL. IVP ONE (15:45)
[2021-07-26] MEDS ORDERED: IOHEXOL 350 MG/ML 100 ML VIAL. IV ONE (15:45)
[2021-07-26 15:58] LABS: BASO # 0.1 x10^3/uL (0.0-0.2); BASO % 1 % (0-3); EOS # 0.1 x10^3/uL (0.0-0.7); EOS % 1 % (0-3); HEMATOCRIT 45.4 % (39.0-53.0); HEMOGLOBIN 15.7 g/dL (13.0-17.5); LYMPH # 1.2 x10^3/uL (1.0-4.8); LYMPH % 12 % (24-48); MEAN CORPUSCULAR HEMOGLOBIN 30 pg (25-35); MEAN CORPUSCULAR HGB CONC 35 g/dL (31-37); MEAN CORPUSCULAR VOLUME 85 fL (79-100); MONO # 0.6 x10^3/uL (0.0-1.1); MONO % 6 % (0-9); NEUT # 8.6 x10^3uL (1.8-7.7); NEUT % 81 % (31-73); PLATELET COUNT 269 x10^3/uL (140-400); RED BLOOD COUNT 5.31 x10^6/uL (4.30-5.70); RED CELL DISTRIBUTION WIDTH 13.3 % (11.5-14.5); WHITE BLOOD COUNT 10.6 x10^3/uL (4.0-11.0)
[2021-07-26] MEDS ORDERED: IOHEXOL 300 MG/ML 75 ML VIAL. IV ONE (16:00)
[2021-07-26] MEDS ORDERED: MORPHINE SULFATE 4 MG/ML DISP.SYRIN. IV ONE ×2 (16:00→17:00)
[2021-07-26 16:18] LABS: CALCIUM 9.1 mg/dL (8.5-10.1); CREATININE 0.9 mg/dL (0.7-1.3); GFR 103.7; POTASSIUM 3.9 mmol/L (3.5-5.1)
--- NOTE | 2021-07-26 16:22 | RAD ---
EXAM: Abdomen and pelvis CT with intravenous contrast. HISTORY: Pain. TECHNIQUE: Computed tomographic images of the abdomen and pelvis were obtained following the administ ration of intravenous contrast. Multiplanar reformatting was performed. *One or more of the following individualized dose reduction techniques were utilized for this examina tion: 1. Automated exposure control. 2. Adjustment of the mA and/or kV according to patient size. 3. Use of iterative reconstruction technique. COMPARISON: 09/21/2019 and 11/28/2018. FINDINGS: Evaluation of the lower thorax demonstrates a partially calcified nodule at the left lung b ase measuring 1.4 cm, stable when allowing for differences in slice position and volume averaging. Th ere is a 2.0 cm hypoechoic lesion within the left hepatic lobe along the falciform ligament. The gall bladder, pancreas and adrenal glands are unremarkable. The spleen is enlarged, measuring 16 cm. The k idneys are unremarkable. There is no appendicitis. There is no bowel obstruction. There is no abnormal bowel wall thickening. There is urinary bladder wall thickening. The aorta is normal in caliber. There is no lymphadenopathy . There is no acute or suspicious osseous finding. IMPRESSION: 1. Stable hypodense lesion along the falciform ligament, the appearance of which favors geographic fa tty deposition. 2. Splenomegaly, slightly increased compared to the prior exam. 3. Mild urinary bladder wall thickening. This can be due to underdistention or cystitis. Correlate wi th urinalysis. 4. Stable 1.4 cm nodule with partial calcification within the left lung base. The greater than two-ye ar course of stability and presence of calcification favors a benign granuloma. Electronically signed by: Socorro Stewart MD (07/26/2021 4:20 PM) [id number]
[2021-07-26 16:24] LABS: ALBUMIN 4.5 g/dL (3.4-5.0); ALBUMIN/GLOBULIN RATIO 1.6 (1.0-1.7); TOTAL BILIRUBIN 0.7 mg/dL (0.2-1.0); TOTAL PROTEIN 7.4 g/dL (6.4-8.2)
[2021-07-26] MEDS ORDERED: ONDA4TAB12 PO (16:38)
[2021-07-26] MEDS ORDERED: diphenhydrAMINE 50 MG/ML VIAL IVP ONE (17:00)
[2021-07-26] MEDS ORDERED: PROM25SU33 RC (17:15)
== END 2021-07-26 17:24 | disposition home or self-care (01) ==
LOC: ER 15:10
DX: R16.1 Splenomegaly, not elsewhere classified (principal); R11.2 Nausea with vomiting, unspecified; R19.7 Diarrhea, unspecified; R10.12 Left upper quadrant pain; K21.9 Gastro-esophageal reflux disease without esophagitis; Z88.8 Allergy status to other drugs, medicaments and biological substances
CPT/HCPCS: 36415; 74177; 80053; 83690; 85025; 96361; 96374; 96375; 96376; 99285; J1200; J2270; J2405; J7030; Q9967